=== PATIENT | male | born 1960 | race Caucasian/White ===

== ENCOUNTER 2022-10-26 08:54 | Emergency (ER) | payer OTHER ==
--- OUTSIDE RECORDS SUMMARY | 2022-10-26 08:58 | XMS REPORT | Continuity of Care Document ---
:1960 Author Organization [facility] t Address [address] [facility] [address] [place] [address] Care Team Providers Name Role Phone Asked, No Pcp Primary Care Physician Unavailable ART WATTERS Attending Clinician Unavailable Percy CARVALHO, Kermit Pacheco Attending Clinician [phone] Joanna Dyer DO Attending Clinician Ronald Vaughan DO Attending Clinician Steven Sosa MD Attending Clinician Missy Min MD Attending Clinician JOANNA DYER Admitting Clinician Unavailable Payers Payer Name Policy Type Policy Number Effective Date Expiration Date [facility] [id number] ALLIANCE - PC3 Problems Condition Condition Condition Status Onset Resolution Last Treating Co mments Source Name Details Category Date Date Treatment Clinician Date Iron Iron Disease Active Overview: Method i deficiency deficiency 02-[address] anemia due anemia due 00:00: g of this [facility]osp[facility] to chronic to chronic 00 note l blood loss blood loss might be different from the original. Added automatic ally from request for surgery [id number] Rectal Rectal Disease Active Overview: Method i bleeding bleeding 02-[address] 00:00: g of this Hospita 00 note l might be different from the original. Added automatic ally from request for surgery [id number] Allergies, Adverse Reactions, Alerts Allergy Allergy Status Severity Reaction(s) Onset Inactive Treating Comm ents Source Name Type Date Date Clinician Iron Propensi Active Other (See Does not Me thodi ty to Comments) 03-[address] adverse 00:00: but Hospita reaction 00 cannot l s to even drug tough it Iodine Propensi Active GI Pt Methodi ty to Intolerance 02-[address] adverse 00:00: to Hospita reaction 00 seafood l s to makes it drug nauseous and sick. Never been received Iodine Family History Family Member Diagnosis Comments Start Date Stop Date Source Natural father [facility] Natural mother [facility] Social History Social Habit Start Date Stop Date Quantity Comments Source History of tobacco Cigarette Smoker [facility] Alcohol intake 2022-03-03 2022-03-03 Ex-drinker [facility] 00:00:00 00:00:00 (finding) [facility] Cigarettes smoked 2022-02-28 2022-02-28 [facility] current (pack per 00:00:00 00:00:00 Hospita l day) - Reported Cigarette 2022-02-28 2022-02-28 [facility] pack-[facility] 00:[facility] 00:00:00 Hospital Tobacco use and 2022-02-28 2022-02-28 Smokeless tobacco Me [facility] exposure 00:00:00 00:00:00 non-user Hospital Sex Assigned At [birth year] [facility] 00:00:00 00:00:00 Hospital Smoking Status Start Date Stop Date Source Smokes tobacco daily 2022-02-28 00:00:00 [facility] Medications Ordered Filled Start Stop Current Ordering Indication Dosage Frequency Signature Comments Components Source Medication Medication Date Date Medication? Clinician (SIG) Name Name aspirin 81 No 81mg QD Chew 1 Meth reece mg chewable 03-03 tablet (81 s t tablet 00:00: 04:59 mg total) Hospi ta 00 :00 daily for l 60 days. diltiazem No 30mg Q.5D Take 1 Metho di (CardIZEM) 03-03 tablet (30 st 30 MG 00:00: 04:59 mg total) Hospit a tablet 00 :00 by mouth 2 l (two) times a day for 30 days. pantoprazol No 40mg QD Take 1 Met hodi e 03-03 tablet (40 st (Protonix) 00:00: 04:59 mg total) H ospita 40 MG EC 00 :00 by mouth l tablet daily for 30 days. polyethylen No 17g Q.5D Take 17 g Methodi e glycol 03-[address] (MIRALAX) 00:00: 04:59 (two) Hospit a 17 gram 00 :00 times a l packet day for 30 days. ferrous No 324mg QD Take 1 Method i gluconate 03-[address] (FERGON) 00:00: 04:59 (324 mg Hospi ta 324 MG 00 :00 total) by l tablet mouth daily with breakfast for 30 days. Vital Signs Vital Name Observation Time Observation Value Comments Source Systolic blood 2022-03-03 16:16:41 119 mm[Hg] Method ist Hospital pressure Diastolic blood 2022-03-03 16:16:41 68 mm[Hg] Metho [facility] pressure Heart rate 2022-03-03 16:16:41 71 /min [facility] Body temperature 2022-03-03 16:16:41 36.61 Yolanda [facility] Respiratory rate 2022-03-03 16:16:41 18 /min [facility] Oxygen saturation in 2022-03-03 16:16:41 98 /min [facility] Arterial blood by Pulse oximetry Body weight 2022-03-02 12:30:00 78.9 kg [facility] BMI 2022-03-02 12:30:00 24.26 kg/m2 [facility] Body height 2022-02-28 23:29:00 180.3 cm [facility] Procedures Procedure Date / Time Performing Source Performed Clinician CBC WITH PLATELET AND DIFFERENTIAL 2022-03-03 Missy Min 11:16:00 [facility] BASIC METABOLIC PANEL 2022-03-03 Ronald Vaughan 11:16:00 [facility] MAGNESIUM LEVEL 2022-03-03 Ronald Vaughan 11:16:00 [facility] ESTIMATED GFR 2022-03-03 Ronald Vaughan 11:16:00 [facility] TRANSFUSE RED BLOOD CELLS 2022-03-02 Dom Meyer Meth odist 18:45:00 Hospital SURGICAL PATHOLOGY REQUEST 2022-03-02 Ronald Vaughan dist 18:10:00 Hospital ESOPHAGOGASTRODUODENOSCOPY (EGD) 2022-03-02 Missy Minist 16:45:00 Hospital COLONOSCOPY 2022-03-02 Missy Minist 16:45:00 [facility] ZZCOVID-19 ANTI-SPIKE IGG ANTIBODY 2022-03-02 Kwaku Hadley libertad [facility] TITER 08:30:00 [facility] CBC WITH PLATELET AND DIFFERENTIAL 2022-03-02 Missy Min 08:30:00 Hospital BASIC METABOLIC PANEL 2022-03-02 Go, Giezle Degamo Methodis t 08:30:00 Hospital PHOSPHORUS LEVEL 2022-03-02 Go, Giezle Degamo [facility] 08:30:00 Hospital MAGNESIUM LEVEL 2022-03-02 Go, Giezle Degamo [facility] 08:30:00 [facility] ZZCOVID-19 SEROLOGY PATIENT 2022-03-02 Bryan Hadley odist SURVEILLANCE 08:30:00 [facility] ESTIMATED GFR 2022-03-02 Go, Giezle Degamo [facility] 08:30:00 Hospital ECG 12-LEAD 2022-03-01 Khris Hunterist 20:42:17 Hospital HEMOGLOBIN & HEMATOCRIT 2022-03-01 Go, Giezle Degamo Method ist 19:48:00 Hospital TTE COMPLETE, WO CONTRAST, W 2022-03-01 Go, Giezle Degamo M ethodist DOPPLER ([id number]) 14:54:00 Hospital ECG 12-LEAD 2022-03-01 Khris Hunter 13:17:24 Hospital TRANSFUSE RED BLOOD CELLS 2022-03-01 Joanna Dyer dist 13:14:00 Hospital CBC WITH PLATELET AND DIFFERENTIAL 2022-03-01 Missy Min 11:41:00 Hospital SMEAR REVIEW 2022-03-01 Stefany Barton 11:41:00 Hospital TROPONIN T 2022-03-01 Kermit Greer 01:51:00 [facility] CBC WITH PLATELET AND DIFFERENTIAL 2022-03-01 José Barton 01:51:00 Hospital SMEAR REVIEW 2022-03-01 Stefany Barton 01:51:00 Hospital URINE CULTURE 2022-03-01 Kermit Greer 00:55:00 [facility] URINALYSIS SCREEN AND MICROSCOPY, 2022-03-01 Alka Greer WITH REFLEX TO CULTURE 00:55:00 [facility] URINE DRUGS OF ABUSE SCREEN 2022-03-01 Stefany Barton 00:55:00 Hospital TRANSFUSE RED BLOOD CELLS 2022-02-28 Kermit Greer ist 22:22:[address] [facility] [address] ABDOMEN PELVIS WO CONTRAST 2022-02-28 Stefany Barton 22:03:50 Hospital CBC WITH PLATELET AND DIFFERENTIAL 2022-02-28 José Barton 21:34:00 Hospital SMEAR REVIEW 2022-02-28 Stefany Barton 21:34:00 Hospital THYROID STIMULATING HORMONE 2022-02-28 Stefany Barton 21:33:00 Hospital FERRITIN LEVEL 2022-02-28 Stefany Barton 21:31:00 Hospital TOTAL IRON BINDING CAPACITY 2022-02-28 Stefany Barton 21:31:00 Hospital LDH 2022-02-28 Stefany Barton 21:31:00 Hospital VITAMIN B12 LEVEL 2022-02-28 Stefany Barton 21:31:00 Hospital FOLATE, RBC 2022-02-28 Stefany Barton 21:31:00 Hospital COVID-19 QUALITATIVE RT-PCR 2022-02-28 Kermit Greer 20:43:00 [facility] OCCULT BLOOD, STOOL 2022-02-28 Kermit Greer 20:13:00 [facility] TROPONIN T 2022-02-28 Kermit Greer 20:06:00 [facility] ABO AND RH CONFIRMATION BY 2022-02-28 Kermit Greero dist PROTOCOL 20:06:00 [facility] XR CHEST 1 VW PORTABLE 2022-02-28 Kermit Greer 18:37:43 [facility] ECG 12-LEAD 2022-02-28 Kermit Greer 18:03:43 [facility] PROTHROMBIN TIME WITH INR 2022-02-28 Kermit Greer ist 18:03:00 [facility] PARTIAL THROMBOPLASTIN TIME (PTT) 2022-02-28 Alka Greer 18:03:00 [facility] TYPE AND SCREEN 2022-02-28 Kermit Greer 18:03:00 [facility] PREPARE RBC 2022-02-28 Dom Meyer [facility] 18:03:00 Hospital ESTIMATED GFR 2022-02-28 Kermit Greer 18:02:00 [facility] [place] CRITICAL CARE ILL/INJURED 2022-02-28 Kermit Greer PATIENT INIT 30-74 MIN 17:59:51 [facility] ECG ED PRELIMINARY INTERPRETATION 2022-02-28 Alka Greer 17:59:51 [facility] ECG 12-LEAD 2022-02-28 Kermit Greer 17:39:55 [facility] CBC WITH PLATELET AND DIFFERENTIAL 2022-02-28 Yara Greer 17:38:00 [facility] COMPREHENSIVE METABOLIC PANEL 2022-02-28 [facility] LIPASE LEVEL 2022-02-28 Kermit Greer 17:38:00 [facility] ESTIMATED GFR 2022-02-28 Kermit Greer 17:38:00 [facility] TROPONIN T 2022-02-28 Kermit Greer 17:38:00 [facility] MAGNESIUM LEVEL 2022-02-28 Kermit Greer 17:38:00 [facility] SMEAR REVIEW 2022-02-28 Kermit Greer 17:38:00 [facility] Plan of Care Planned Activity Planned Date Details Comments Source Future Scheduled 2022-08-09 COVID-19 VACCINE (#1) [facility] Test 10:24:30 [code = COVID-19 VACCINE (#1)] Future Scheduled 2022-08-09 Pneumococcal Vaccine: [facility] Test 10:24:30 Pediatrics (0 to 5 Years) and At-Risk Patients (6 to 64 Years) (1 - PCV) [code = Pneumococcal Vaccine: Pediatrics (0 to 5 Years) and At-Risk Patients (6 to 64 Years) (1 - PCV)] Future Scheduled 2022-08-09 Hepatitis C screening [facility] Test 10:24:30 (procedure) [code = 853435511] Future Scheduled 2022-08-09 COLONOSCOPY SCREENING [facility] Test 10:24:30 [code = COLONOSCOPY SCREENING] Future Scheduled 2022-08-09 Screening for [facility] Test 10:24:30 malignant neoplasm of lung (procedure) [code = 391416669] Future Scheduled 2022-08-09 SHINGLES VACCINES (1 Met [facility] Test 10:24:30 of 2) [code = SHINGLES VACCINES (1 of 2)] Future Scheduled 2022-08-09 INFL[address]ZA VACC[address] Method [facility] Test 10:24:30 [code = INFLUENZA VACCINE] Encounters Start End Encounter Admission Attending Care Care Encounter Source Date/Time Date/Time Type Type Clinicians Facility Department ID 2022-12-07 2022-12-07 Outpatient ART [facility] [id number] [facility] 00:00:00 00:00:00 Mahendra 2022-02-28 2022-03-03 [facility] Percy Kermit Junior 1.2.840. 1 [id number] Methodi 12:37:00 11:50:00 Encounter NereidaolgaJoanna mendoza [id number] Ronald Vaughan 3.430.2.7 Hospita .3.132978 l .8 2022-03-02 2022-03-02 Anesthesia Steven Sosa 1.2.840.1 [id number] Methodi 11:44:00 12:27:00 [place] [address].1.[address] 3.430.2.7 Hospit a .3.357237 l .8 2022-03-02 2022-03-02 Surgery Missy Min 1.2.840.1 [id number] Methodi 11:40:00 12:20:[address] 3.430.2.7 Hospit a .3.938142 l .8 2022-02-28 2022-02-28 Travel 1.2.840.1 1.2.390.981 [id number] Methodi 00:00:00 00:00:[address] 3.430.2.7 0.2.7.3.698 Ho spita .3.609467 084.8 l .8 Results Test Description Test Time Test Comments Results Result Comments Source ECG 12 lead 2022-04-16 16:16:00 Test Item Value Reference Range Interpretation Comme nts Ventricular rate (test code = 253) 63 Atrial rate (test code = 255) 63 WV interval (test code = 266) 154 QRSD interval (test code = 260) 92 QT interval (test code = 264) 380 QTC interval (test code = 265) 388 P axis 1 (test code = 267) 75 QRS axis 1 (test code = 268) 82 T wave axis (test code = 270) 60 EKG impression (test code = 273) Normal sinus rhythm with sinus arrhythmia-Normal ECG-In automated comparison with ECG of 01-MAR-2022 08:17,-Sinus rhythm has replaced Atrial fibrillation-Vent. rate has decreased BY 65 B[facility] [id number] 22:07:12 Test Item Value Reference Range Interpretation Comments Case number (test code = [id number]) Surgical pathology See link below for report (test code = PDF Lab Report [id number]) Result status (test code This is Final Report = [id number]) for [id number] [facility], (w Contrast, Strain and 3D if needed)2022-03-02 13:38:33 Test Item Value Reference Interpretation Comments Range Ao Root Diameter 3.24 cm (test code = 5154666846) AoV Area, Vmax (test 2.49 cm2 >=1.5 code = 9754513481) AoV Area, VTI (test 2.48 cm2 code = 9773321652) AoV Mean PG (test 4.74 mmHg code = 0712308690) AoV Peak PG (test 6.52 mmHg code = 5716246505) AoV Vmax (test code 1.32 m/s = 7442348876) AoV VTI (test code = 0.26 m 3323703388) BSA Rogers (test code 2.04 m2 = 7365831142) BSA (test code = 2.02 m2 1318294372) IVS,d (test code = 1.50 cm 0.6-1 A 5255611991) IVS/LVPW,2D (test 0.99 code = 6698652641) Left Atrium 4.02 cm Dimension Anterior (test code = 8975629666) LV,d (test code = 4.10 cm 1264920205) LV EF,2D (test code 66.03 % = 5424255859) LV,s (test code = 2.86 cm 6265373377) LVOT area (test code 3.90 cm2 = 6037575093) LVOT Diam,S (test 2.23 cm code = 1577827082) LVOT Vmax (test code 0.81 m/s = 1550163846) LVOT VTI (test code 0.15 m = 7924316720) LVPWD,d (test code = 1.51 cm 0.60-1.19 A 2034303629) PV Pk Grad (test 2.05 mmHg code = 1000933065) PV VMAX (test code = 0.72 m/s 2897082166) TR Vpeak (test code 2.23 m/s = 1300279479) TR pk grad (test 15.71 mmHg code = 3325223401) AoV area i VTI BSA 1.23 cm2/m2 >=0.85 [place] (test code = 1303461695) BMI (test code = 25.24 kg/m2 1176425731) E wave decelartion 122.41 See_Comment A [Automat ed time (test code = message] T he 6281304577) system which generated this result transmitted reference range : 200 msec. The reference range was not used to interpret this result as normal/abnormal . MV valve area p 1/2 6.20 cm2 method (test code = 7399962761) MV Peak E [place] (test 0.78 m/s code = 9524680274) MV stenosis pressure 35.50 ms 1/2 time (test code = 5609291357) LVOT stroke volume 0.59 ml (test code = 3961308088) AV LVOT peak 2.63 mmHg gradient (test code = 3016302040) Ascending aorta 3.51 cm (test code = 2644722233) Ao Root Diameter 3.24 cm (test code = 9312613763) LV SYS VOL (test 31.21 ml 21-61 code = 7165658859) LV CASTANEDA VOL (test 74.35 ml 62-150 code = 7255108533) LA area s A4C (test 22.67 cm2 code = 1905053665) LV SI Teich 2D (test 21.34 ml/m2 code = 6881480827) LV SV Teich 2D (test 43.14 ml code = 6877254847) LV Vol s Teich PSAX 31.21 ml (test code = 5533173926) LVOT CI (test code = 3.27 l/min/m2 0191045729) LVOT CO (test code = 6.62 l/min 8983972526) LVOT HR for LVOT CO 110.63 bpm (test code = 0811675842) LVOT SI (test code = 29.59 ml/m2 6905456467) BSA [place] (test 2.04 m2 code = 5209477162) AoV Vmn (test code = 1.04 m/s 7492178848) IVS s 2D (test code 1.93 cm = 2332682704) LV FS Teich 2D (test 30.22 code = 1693476396) LV FS Cube 2D (test 30.22 code = 6833649235) LVOT Vmn (test code 0.63 = 0789863834) Pt Size (test code = 180.34 9392328336) Pt Wt (test code = 82.10 9129728878) Aov area Vmn (test 2.45 cm2 code = 1453364397) LVOT mean grad (test 1.68 mmHg code = 3189608270) MAX Pred HR (test 159.17 code = 0351480989) 85 of MPHR (test 135.29 code = 2742435587) AoV area I VMN bsa 1.21 cm2/m2 (test code = 2942412680) Calc MPHR (test code 159.17 bpm = 0704968437) IVS pct thck PLAX 29.05 % (test code = 0645559744) LV SI Cube 2D (test 22.56 ml/m2 code = 1608000534) LV SV Cube 2D (test 45.61 ml code = 7802766061) LV vol d cube 2D 69.07 ml (test code = 1266761854) LV vol s cube 2D 23.47 ml (test code = 3912258933) LVPW pct thck PLAX 42.11 % (test code = 8530417145) LVPW s PLAX (test 2.15 cm code = 6611897939) MV Decel slope (test 6.38 m/s2 code = 0099875867) Pred Exer Dur R1 8.58 (test code = 0441823396) Pred METS R1 (test 8.88 code = 7891395951) LA Vol MOD A4C (test 71.69 ml code = 0520349223) Velocity Ratio 0.61 m/s (V1/V2) (test code = 4689) EF (test code = 58 % 6892639077) LVOT VTI (CM) (test 15.00 cm code = 2432980992) SOTO (test code = SOTO) Left Ventricle: Left ventricle size is normal. Mildly increased wall thickness. Findings consistent with mild concentric hypertrophy. Normal wall motion. Normal systolic function with a visually estimated EF of 60 - 65%. Left Atrium: Left atrium is mildly dilated. Tricuspid Valve: Mild valvular regurgitation. Left VentricleLeft ventricle size is normal. Mildly increased wall thickness. Findings consistent with mild concentric hypertrophy. Normal wall motion. Normal systolic function with a visually estimated EF of 60 - 65%. Unable to assess diastolic function.Right VentricleRight ventricle size is normal. Normal wall thickness. Normal systolic function.Left AtriumLeft atrium is mildly dilated.Right AtriumRight atrium size is normal.Mitral ValveValve structure is normal. No significant valvular regurgitation. No stenosis.Tricuspid ValveValve structure is normal. Mild valvular regurgitation. No stenosis.Aortic ValveValve structure appears tricuspid. Mildly sclerotic cusps. No significant valvular regurgitation. No stenosis.Pulmonic ValveNot well visualized.Pericardi umThere is no pericardial effusion present.AortaNot well visualized.Study DetailsStudy quality was adequate. A complete 2D, color flow Doppler and spectral Doppler echocardiogram was performed. Lab Interpretation Abnormal (test code = 05848-2) [facility] [id number] 02:34:00 Test Item Value Reference Range Interpretation Comments Urine culture (test SEE COMMENT Bacteriu leah screen code = 2381214) negative. [facility] RNA [Presence] in Respiratory specimen by LISETTE with probe [id number] 01:56:11 Test Item Value Reference Range Interpretation Comments SARS-CoV-2 (COVID-19) RNA Not detected [Presence] in Respiratory specimen by LISETTE with probe detection (test code = 29284-5) Whether patient is employed in a Unknown healthcare setting (test code = 91302-9) Whether the patient has symptoms Unknown related to condition of interest (test code = 68357-2) Whether the patient was Unknown hospitalized for condition of interest (test code = 42742-4) Whether the patient was admitted Unknown to intensive care unit (ICU) for condition of interest (test code = 67548-0) Whether patient resides in a Unknown congregate care setting (test code = 64456-8) status (test code = Unknown 58131-5) Date and time of symptom onset Unknown (test code = 34838-9) [facility]
[2022-10-26 09:34] LABS: Hematocrit 19.8 % (39.6-49.0); MCV 65.1 fL (80-100); MPV 8.7 fL (7.6-11.3); RBC Red Blood Cell Count 3.05 M/uL (4.33-5.43)
[2022-10-26 09:50] LABS: Potassium 4.1 mEq/L (3.5-5.1)
[2022-10-26] MEDS ORDERED: NA CHLORIDE 0.9% 250 ML ONE (11:09)
[2022-10-26 11:36] LABS: Anisocytosis 3+; Blood Morphology Comment NOTED (NOT SEEN); Hypochromasia 1+; Platelet Estimate ADEQ; Platelets, Giant PRESENT; Polychromasia 1+
--- NOTE | 2022-10-26 14:36 | EDPHYS ---
Physician Documentation [facility] Name: Amanuel Page Age: 62 yrs Sex: Male : 1960 Arrival Date: 10/26/2022 Time: 08:54 Bed 20 Private MD: ED Physician Chris Diego HPI: 10/26 11:11 This 62 yrs old Male presents to ER via Ambulatory with complaints of Abnormal Lab ms3 Results. 11:11 62-year-old male with past medical history of bladder mass, anemia presents from the [facility] ms3 for low hemoglobin. Patient states his hemoglobin was 5.8 at the [facility]. Patient denies pain, shortness of breath, nausea, vomiting. Historical: - Allergies: 09:00 Iodine; aa5 - PMHx: 09:00 Bladder Mass; Anemia; aa5 - Immunization history:: Adult Immunizations up to date. - Social history:: Smoking status: Patient denies any tobacco usage or history of. ROS: 11:11 Constitutional: Negative for fever, and chills. Neck: Negative for injury, pain, and ms3 swelling, Cardiovascular: Negative for chest pain, and palpitations. Respiratory: Negative for shortness of breath, cough, wheezing, and pleuritic chest pain, Abdomen/GI: Negative for abdominal pain, nausea, vomiting, diarrhea, and constipation, MS/Extremity: Negative for injury and deformity. 11:11 All other systems are negative. Exam: 11:11 Constitutional: This is a well developed, well nourished patient who is awake, alert, ms3 and in no acute distress. Head/Face: Normocephalic, atraumatic. Neck: Trachea midline, no cervical lymphadenopathy. Supple, full range of motion without nuchal rigidity, or vertebral point tenderness. No Meningismus. Chest/axilla: Normal chest wall appearance and motion. Nontender with no deformity. Cardiovascular: Regular rate and rhythm with a normal S1 and S2. No gallops, murmurs, or rubs. Normal PMI, no JVD. No pulse deficits. Respiratory: Lungs have equal breath sounds bilaterally, clear to auscultation and percussion. No rales, rhonchi or wheezes noted. No increased work of breathing, no retractions or nasal flaring. Abdomen/GI: Soft, non-tender, with normal bowel sounds. No distension or tympany. No guarding or rebound. No evidence of tenderness throughout. Skin: Warm, dry with normal turgor. Normal color with no rashes, no lesions, and no evidence of cellulitis. MS/ Extremity: Pulses equal, no cyanosis. Neurovascular intact. Full, normal range of motion. Vital Signs: 09:00 BP 126 / 71; Pulse 72; Resp 16 S; Temp 98.5(O); Pulse Ox 95% on R/A; aa5 09:00 BP 126 / 71; Pulse 70; Resp 18; Pulse Ox 98% ; ko1 10:00 BP 108 / 66; Pulse 74; Resp 16; Pulse Ox 100% ; ko1 11:00 BP 128 / 81; Pulse 70; Resp 18; Pulse Ox 100% ; ko1 12:00 BP 123 / 72; Pulse 66; Resp 18; Pulse Ox 100% ; ko1 13:00 BP 117 / 76; Pulse 72; Resp 16; Pulse Ox 100% ; ko1 MDM: 09:24 Patient medically screened. ms3 11:11 Differential Diagnosis Anemia versus lab error. ms3 15:00 Data reviewed: vital signs, nurses notes, lab test result(s), and as a result, I will ms3 discharge patient. I considered the following discharge prescriptions or medication management in the emergency department Patient given blood. Counseling: I had a detailed discussion with the patient and/or guardian regarding: the historical points, exam findings, and any diagnostic results supporting the discharge/admit diagnosis, lab results, the need for outpatient follow up, to return to the emergency department if symptoms worsen or persist or if there are any questions or concerns that arise at home. ED course: Discussed hemoglobin and necessity for blood transfusion with patient. Patient completed blood transfusion without complications. Patient to follow-up with his primary care physician in 1 to 2 days. Patient understands and agrees with plan. All questions were answered. Return precautions discussed include worsening symptoms, or any other concerns. 10/26 09:09 Order name: CBC with Diff; Complete Time: 15:01 ms3 10/26 09:09 Order name: BMP; Complete Time: 15: ms3 10/26 09:09 Order name: Type And Screen ms3 10/26 09:48 Order name: Manual Differential; Complete Time: 15: EDMS 10/26 10:14 Order name: Packed RBC Leukored EDMS Administered Medications: No medications were administered Disposition Summary: 10/26/22 14:35 Discharge Ordered Location: Home ms3 Condition: Stable ms3 Diagnosis - Anemia, unspecified ms3 Followup: ms3 - With: Private Physician - When: 2 - 3 days - Reason: Recheck today's complaints Discharge Instructions: - Discharge Summary Sheet ms3 - Anemia ms3 - Blood Transfusion, Adult ms3 Forms: - Medication Reconciliation Form ms3 - Thank You Letter ms3 - Antibiotic Education ms3 - Prescription Opioid Use ms3 Signatures: Dispatcher [employer] EDMS Daxa Bush, RN RN aa5 Liberty Logan RN RN Chris Diego, DO ms3
--- NOTE | 2022-10-26 14:36 | ER ---
Nurse's Notes [facility] Name: Amanuel Page Age: 62 yrs Sex: Male : 1960 Arrival Date: 10/26/2022 Time: 08:54 Bed 20 Private MD: Diagnosis: Anemia, unspecified Presentation: 10/26 09:00 Chief complaint: Chief complaint: Patient states: "my doctor sent me a message this aa5 morning saying that I need a blood transfusion", reports Hemoglobin of 5.8. Pt states "I have a biopsy scheduled on Tuesday to check me for cancer". 09:00 Coronavirus screen: At this time, the client does not indicate any symptoms associated aa5 with coronavirus-19. Ebola Screen: Patient denies travel to an Ebola-affected area in the 21 days before illness onset. Initial Sepsis Screen: Does the patient meet any 2 criteria? No. Patient's initial sepsis screen is negative. Does the patient have a suspected source of infection? No. Patient's initial sepsis screen is negative. Risk Assessment: Do you want to hurt yourself or someone else? Patient reports no desire to harm self or others. Onset of symptoms was October 26, 2022. 09:00 Acuity: ANA 3 aa5 09:00 Method Of Arrival: Ambulatory aa5 Historical: - Allergies: 09:00 Iodine; aa5 - PMHx: 09:00 Bladder Mass; Anemia; aa5 - Immunization history:: Adult Immunizations up to date. - Social history:: Smoking status: Patient denies any tobacco usage or history of. Screenin:08 [facility] ED Fall Risk Assessment (Adult) Score/Fall Risk Level 0 - 2 = Low Risk hb Oriented to surroundings, Maintained a safe environment, Educated pt \\T\\ family on fall prevention, incl call for assistance when getting out of bed. Abuse screen: Denies threats or abuse. Denies injuries from another. Nutritional screening: No deficits noted. Tuberculosis screening: No symptoms or risk factors identified. Assessment: 09:47 General: Appears in no apparent distress. Behavior is calm, cooperative. Pain: Denies hb pain. Neuro: Level of Consciousness is awake, alert, obeys commands, Oriented to person, place, time, situation. Cardiovascular: Patient's skin is warm and dry. Respiratory: Respiratory effort is even, unlabored, Respiratory pattern is regular, symmetrical. GI: No signs and/or symptoms were reported involving the gastrointestinal system. : No signs and/or symptoms were reported regarding the genitourinary system. EENT: No signs and/or symptoms were reported regarding the EENT system. Derm: Skin is pink, warm \\T\\ dry. Musculoskeletal: No signs and/or symptoms reported regarding the musculoskeletal system. Vital Signs: 09:00 BP 126 / 71; Pulse 72; Resp 16 S; Temp 98.5(O); Pulse Ox 95% on R/A; aa5 09:00 BP 126 / 71; Pulse 70; Resp 18; Pulse Ox 98% ; ko1 10:00 BP 108 / 66; Pulse 74; Resp 16; Pulse Ox 100% ; ko1 11:00 BP 128 / 81; Pulse 70; Resp 18; Pulse Ox 100% ; ko1 12:00 BP 123 / 72; Pulse 66; Resp 18; Pulse Ox 100% ; ko1 13:00 BP 117 / 76; Pulse 72; Resp 16; Pulse Ox 100% ; ko1 ED Course: 08:56 Patient arrived in ED. rg4 08:58 Chris Diego DO is Attending Physician. ms3 09:07 Arm band placed on Patient placed in an exam room, on a stretcher. aa5 09:11 Triage completed. aa5 09:18 Liberty Logan, RN is Primary Nurse. hb 09:30 Inserted saline lock: 20 gauge in right antecubital area, using aseptic technique. hb 09:47 Patient has correct armband on for positive identification. hb 10:45 Consent for blood and/or blood product transfusion explained by staff, explained by ko1 physician, signed by patient. 11:30 Warm blanket given. Pillow given. ko1 11:30 No provider procedures requiring assistance completed. ko1 11:45 Pulse ox on. NIBP on. ko1 Administered Medications: No medications were administered Medication: 09:47 VIS not applicable for this client. hb Outcome: 14:35 Discharge ordered by . ms3 14:50 Patient left the ED. ko1 Signatures: Daxa Bush RN RN aa5 Liberty Logan RN RN hb Garcia, Rubi rg4 Chris Diego DO DO ms3 Veena Lopez RN RN ko1 Corrections: (The following items were deleted from the chart) 09:11 09:00 Chief complaint: aa5 aa5
[2022-10-26 14:55] VITALS: TEMP 98.5
[2022-10-26 14:56] VITALS: O2SAT 100
[2022-10-26 15:00] VITALS: BP 117/76
== END 2022-10-26 14:50 | disposition home or self-care (01) ==
LOC: ER 08:54
PROC: 30233N1 Transfusion of Nonautologous Red Blood Cells into Peripheral Vein, Percutaneous Approach (ICD-10-PCS; principal; 2022-10-26)
DX: D64.9 Anemia, unspecified (principal)
CPT/HCPCS: 85025; 80048; 36415; 86900; 86850; 86901; 86920; 99283; 36430; P9016; J7050

== ENCOUNTER 2022-12-07 13:03 | Emergency (ER) | payer OTHER, SELFPAY ==
--- OUTSIDE RECORDS SUMMARY | 2022-12-07 13:41 | XMS REPORT | Continuity of Care Document ---
:1960 Author Organization [facility] t Address [address] [facility] [facility] [place] [address] Care Team Providers Name Role Phone Asked, No Pcp Primary Care Physician Unavailable ART WATTERS Attending Clinician Unavailable ART WATTERS Attending Clinician Unavailable Art Watters MD Attending Clinician Kermit Greer MD Attending Clinician [phone] Joanna Dyer DO Attending Clinician Ronald Vaughan DO Attending Clinician Sheila CARVALHO, Steven Liu Attending Clinician Missy Min MD Attending Clinician JOANNA DYER Admitting Clinician Unavailable Payers Payer Name Policy Type Policy Number Effective Date Expiration Date S vinod [facility] CHOICE [id number] 2022 CARD AND PC3 00:00:00 [facility] [id number] ALLIANCE - PC3 Problems Condition Condition Condition [...] Added automatic ally from request for surgery [id number] Rectal Rectal Disease Active Overview: Method i bleeding bleeding [address] 00:00: g of this Hospita 00 note l might be different from the original. Added automatic ally from request for surgery [id number] Allergies, Adverse Reactions, Alerts Allergy Allergy Status [...] Start Date Stop Date Source Natural father [facility] Natural mother [facility] Social History Social Habit Start Date Stop Date Quantity Comments Source History of tobacco Cigarette Smoker [facility] Gender identity [facility] Sexual orientation [facility] Alcohol intake 2022-03-03 2022-03-03 Ex-drinker [facility] 00:00:00 00:00:00 (finding) Hospital History of Social 2022-03-03 2022-03-[address] function 00:00:00 00:00:00 Hospital Tobacco use and 2022-02-28 2022-02-28 Smokeless [facility] exposure 00:00:00 00:00:00 tobacco non-user Hospital Cigarettes smoked 2022-02-28 2022-02-28 [facility] current (pack per 00:00:00 00:00:00 Hospita l day) - Reported Cigarette 2022-02-28 2022-02-28 [facility] pack-years 00:00:00 00:00:00 Hospital Sex Assigned At [birth year] [facility] 00:00:00 00:00:00 Hospital Smoking Status Start Date Stop Date Source Smokes tobacco daily 2022-02-28 00:00:00 [facility] Medications Ordered Filled Start Stop Current Ordering Indication Dosage Frequency Signature Comments Components Source Medication Medication Date Date Medication? Clinician (SIG) Name Name aspirin 81 2021- No 81mg QD Chew 1 Meth reece mg chewable 8-31 10-31 tablet (81 s t tablet 00:00: 04:59 mg total) Hospi ta 00 :00 daily for l 60 days. aspirin 81 2021- No 81mg QD Chew 1 Meth reece mg chewable 8-31 10-31 tablet (81 s t tablet 00:00: 04:59 mg total) Hospi ta 00 :00 daily for l 60 days. diltiazem 2021- No 30mg Q.5D Take 1 Metho di (CardIZEM) 03-03 tablet (30 st 30 MG 00:00: 04:59 mg total) Hospit a tablet 00 :00 by mouth 2 l (two) times a day for 30 days. pantoprazol 2021- No 40mg QD Take 1 Met hodi e 03-03 tablet (40 st (Protonix) 00:00: 04:59 mg total) H ospita 40 MG EC 00 :00 by mouth l tablet daily for 30 days. polyethylen 2021- No 17g Q.5D Take 17 g Methodi e glycol 03-[address] (MIRALAX) 00:00: 04:59 (two) Hospit a 17 gram 00 :00 times a l packet day for 30 days. ferrous 2021-2021- No 324mg QD Take 1 Method i gluconate 03-[address] (FERGON) 00:00: 04:59 (324 mg Hospi ta 324 MG 00 :00 total) by l tablet mouth daily with breakfast for 30 days. diltiazem 2021- No 30mg Q.5D Take 1 Metho di (CardIZEM) 03-03 tablet (30 st 30 MG 00:00: 04:59 mg total) Hospit a tablet 00 :00 by mouth 2 l (two) times a day for 30 days. pantoprazol 2021- No 40mg QD Take 1 Met hodi e 03-03 tablet (40 st (Protonix) 00:00: 04:59 mg total) H ospita 40 MG EC 00 :00 by mouth l tablet daily for 30 days. polyethylen 2021-2021- No 17g Q.5D Take 17 g Methodi e glycol 03-[address] (MIRALAX) 00:00: 04:59 (two) Hospit a 17 gram 00 :00 times a l packet day for 30 days. ferrous 2021-0 2021- No 324mg QD Take 1 Method i gluconate 03-[address] (FERGON) 00:00: 04:59 (324 mg Hospi ta 324 MG 00 :00 total) by l tablet mouth daily with breakfast for 30 days. Vital Signs Vital Name Observation Time Observation Value Comments Source Systolic blood 2022-03-03 16:16:41 119 mm[Hg] [facility] pressure Diastolic blood 2022-03-03 16:16:41 68 mm[facility]Hg[facility] pressure Heart rate 2022-03-03 16:16:41 71 /min [facility] Body temperature 2022-03-03 16:16:41 36.61 Yolanda [facility] Respiratory rate 2022-03-03 16:16:41 18 /min [facility] Oxygen saturation in 2022-03-03 16:16:41 98 /min [facility] Arterial blood by Pulse oximetry Body weight 2022-03-02 12:30:00 78.9 kg [facility] BMI 2022-03-02 12:30:00 24.26 kg/m2 [facility] Body height 2022-02-28 23:29:00 180.3 cm [facility] Procedures Procedure Date / Time Performing Source Performed Clinician CBC WITH PLATELET AND DIFFERENTIAL 2022-03-03 Missy Min 11:16:00 [facility] BASIC METABOLIC PANEL 2022-03-03 Ronald Vaughan 11:16:00 [facility] MAGNESIUM LEVEL 2022-03-03 Ronald Vaughan 11:16:00 [facility] ESTIMATED GFR 2022-03-03 Ronald Vaughan 11:16:00 Hospital TRANSFUSE RED BLOOD CELLS 2022-03-02 Dom Meyer odist 18:45:00 [facility] SURGICAL PATHOLOGY REQUEST 2022-03-02 Ronald Vaughan 18:10:00 [facility] ESOPHAGOGASTRODUODENOSCOPY (EGD) 2022-03-02 Missy Min 16:45:00 [facility] COLONOSCOPY 2022-03-02 Missy Min 16:45:00 [facility] ZZCOVID-19 ANTI-SPIKE IGG ANTIBODY 2022-03-02 Kwaku Hadley TITER 08:30:00 [facility] CBC WITH PLATELET AND DIFFERENTIAL 2022-03-02 Missy Min 08:30:00 Hospital BASIC METABOLIC PANEL 2022-03-02 Go, Ednale Degamo [facility] t 08:30:00 Hospital PHOSPHORUS LEVEL 2022-03-02 Go, Giezle Degamo [facility] 08:30:00 Hospital MAGNESIUM LEVEL 2022-03-02 Go, Giezle Degamo [facility] 08:30:00 [facility] ZZCOVID-19 SEROLOGY PATIENT 2022-03-02 Bryan Hadley odist SURVEILLANCE 08:30:00 [facility] ESTIMATED GFR 2022-03-02 Go, Dom Degamo [facility] 08:30:00 Hospital ECG 12-LEAD 2022-03-01 Khris Hunter 20:42:17 Hospital HEMOGLOBIN & HEMATOCRIT 2022-03-01 Go, Ednale Eriklyndsayo Method ist 19:48:00 Hospital TTE COMPLETE, WO CONTRAST, W 2022-03-01 Mitch, Radhatanvir Herzog ethodist DOPPLER ([id number]) 14:54:00 Hospital ECG 12-LEAD 2022-03-01 Khris Hunter 13:17:24 Hospital TRANSFUSE RED BLOOD CELLS 2022-03-01 CarolimpallJoanna mendozao dist 13:14:00 Hospital CBC WITH PLATELET AND DIFFERENTIAL 2022-03-01 Missy Min 11:41:00 Hospital SMEAR REVIEW 2022-03-01 Stefany Barton 11:41:00 Hospital TROPONIN T 2022-03-01 Kermit Greer 01:51:00 [facility] CBC WITH PLATELET AND DIFFERENTIAL 2022-03-01 José Barton 01:51:00 Hospital SMEAR REVIEW 2022-03-01 Stefany Barton 01:51:00 Hospital URINE CULTURE 2022-03-01 Kermit Greer 00:55:00 [facility] URINALYSIS SCREEN AND MICROSCOPY, 2022-03-01 Alka Greer WITH REFLEX TO CULTURE 00:55:00 [facility] URINE DRUGS OF ABUSE SCREEN 2022-03-01 Stefany Bartonodist 00:55:00 Hospital TRANSFUSE RED BLOOD CELLS 2022-02-28 Kermit Greer ist 22:22:[address] [facility] [address] ABDOMEN PELVIS WO CONTRAST 2022-02-28 Stefany Barton 22:03:50 Hospital CBC WITH PLATELET AND DIFFERENTIAL 2022-02-28 José Barton 21:34:00 Hospital SMEAR REVIEW 2022-02-28 Stefany Barton 21:34:00 Hospital THYROID STIMULATING HORMONE 2022-02-28 Stefany Barton ethodist 21:33:00 Hospital FERRITIN LEVEL 2022-02-28 Stefany Barton 21:31:00 Hospital TOTAL IRON BINDING CAPACITY 2022-02-28 Stefany Barton [facility]ist 21:31:00 Hospital LDH 2022-02-28 Stefany Barton 21:31:00 Hospital VITAMIN B12 LEVEL 2022-02-28 Stefany Barton 21:31:00 Hospital FOLATE, RBC 2022-02-28 Stefany Barton 21:31:00 Hospital COVID-19 QUALITATIVE RT-PCR 2022-02-28 Kermit Greer 20:43:00 [facility] OCCULT BLOOD, STOOL 2022-02-28 Kermit Greer 20:13:00 [facility] TROPONIN T 2022-02-28 Kermit Greer 20:06:00 [facility] ABO AND RH CONFIRMATION BY 2022-02-28 Kermit Greer dist PROTOCOL 20:06:00 [facility] XR CHEST 1 VW PORTABLE 2022-02-28 Kermit Greer 18:37:43 [facility] ECG 12-LEAD 2022-02-28 Kermit Greer 18:03:43 [facility] PROTHROMBIN TIME WITH INR 2022-02-28 Kermit Greer ist 18:03:00 [facility] PARTIAL THROMBOPLASTIN TIME (PTT) 2022-02-28 Alka Greer 18:03:00 [facility] TYPE AND SCREEN 2022-02-28 Kermit Greer 18:03:00 [facility] PREPARE RBC 2022-02-28 Dom Meyer 18:03:00 Hospital ESTIMATED GFR 2022-02-28 Kermit Greer 18:02:00 [facility] WI CRITICAL CARE ILL/INJURED 2022-02-28 Greer, Kermit Met hodist PATIENT INIT 30-74 MIN 17:59:51 [facility] ECG ED PRELIMINARY INTERPRETATION 2022-02-28 Alka Greer 17:59:51 [facility] ECG 12-LEAD 2022-02-28 Kermit Greer 17:39:55 [facility] CBC WITH PLATELET AND DIFFERENTIAL 2022-02-28 Yara Greer 17:38:00 [facility] COMPREHENSIVE METABOLIC PANEL 2022-02-28 Kermit Greer Il thodist 17:38:00 [facility] LIPASE LEVEL 2022-02-28 Kermit Greer 17:38:00 [facility] ESTIMATED GFR 2022-02-28 Kermit Greer 17:38:00 [facility] TROPONIN T 2022-02-28 Kermit Greer 17:38:00 [facility] MAGNESIUM LEVEL 2022-02-28 Kermit Greer 17:38:00 [facility] SMEAR REVIEW 2022-02-28 Kermit Greer 17:38:00 [facility] Plan of Care Planned Activity Planned Date Details Comments Source Future Scheduled 2023-03-[address] [facility] Test 00:00:00 (Season Ended) [code = [facility] INFLUENZA VACCINE (Season Ended)] Future Scheduled 2022-12-07 Screening for [facility] Test 13:31:10 malignant neoplasm of colon (procedure) [code = 650420641] Future Scheduled 2022-12-07 Screening for [facility] Test 13:31:10 malignant neoplasm of colon (procedure) [code = 070247524] Future Scheduled 2022-12-07 COVID-19 VACCINE (#1) [facility] Test 13:31:10 [code = COVID-19 VACCINE (#1)] Future Scheduled 2022-12-07 Pneumococcal Vaccine: [facility] Test 13:31:10 Pediatrics (0 to 5 Years) and At-Risk Patients (6 to 64 Years) (1 - PCV) [code = Pneumococcal Vaccine: Pediatrics (0 to 5 Years) and At-Risk Patients (6 to 64 Years) (1 - PCV)] Future Scheduled 2022-12-07 Hepatitis C screening [facility] Test 13:31:10 (procedure) [code = 307547115] Future Scheduled 2022-12-07 Screening for [facility] Test 13:31:10 malignant neoplasm of colon (procedure) [code = 870308326] Future Scheduled 2022-12-07 Screening for [facility] Test 13:31:10 malignant neoplasm of lung (procedure) [code = 951527378] Future Scheduled 2022-12-07 SHINGLES VACCINES (1 Met [facility] Test 13:31:10 of 2) [code = SHINGLES VACCINES (1 of 2)] Future Scheduled 2022-12-07 INFLUENZA VACCINE [facility] Test 13:31:10 [code = INFLUENZA VACCINE] Future Scheduled 2022-12-07 Screening for [facility] Test 13:31:10 malignant neoplasm of colon (procedure) [code = 080078304] Future Scheduled 2022-12-07 Screening for [facility] Test 13:31:10 malignant neoplasm of colon (procedure) [code = 861875328] Future Scheduled 2022-08-09 COVID-19 VACCINE (#1) [facility] Test 10:24:30 [code = COVID-19 VACCINE (#1)] Future Scheduled 2022-08-09 Pneumococcal Vaccine: [facility] Test 10:24:30 Pediatrics (0 to 5 Years) and At-Risk Patients (6 to 64 Years) (1 - PCV) [code = Pneumococcal Vaccine: Pediatrics (0 to 5 Years) and At-Risk Patients (6 to 64 Years) (1 - PCV)] Future Scheduled 2022-08-09 Hepatitis C screening [facility] Test 10:24:30 (procedure) [code = 678900400] Future Scheduled 2022-08-09 COLONOSCOPY SCREENING [facility] Test 10:24:30 [code = COLONOSCOPY SCREENING] Future Scheduled 2022-08-09 Screening for [facility] Test 10:24:30 malignant neoplasm of lung (procedure) [code = 971714543] Future Scheduled 2022-08-09 SHINGLES VACCINES (1 Met [facility] Test 10:24:30 of 2) [code = SHINGLES VACCINES (1 of 2)] Future Scheduled 2022-08-09 INFLUENZA VACCINE Method [facility] Test 10:24:30 [code = INFLUENZA VACCINE] Future Scheduled 2022-07-04 DEPRESSION [address] [facility] Test 00:00:00 (12+) [code = Medical Center DEPRESSION SCREENING (12+)] Future Scheduled 2011 SHINGLES VACCINES ([address] [facility] Test 00:00:00 of 2) [code = SHINGLES Medic al Center VACCINES (1 of 2)] Future Scheduled [address] [facility] Test 00:[facility]:00 (procedure) [code = Medical Center 54206506] Future Scheduled 1980 DTAP/TDAP/TD [facility]ACCINES [facility] Test 00:00:00 (1 - Tdap) [code = Medical C enter DTAP/TDAP/TD VACCINES (1 - Tdap)] Future Scheduled 1979 HEPATITIS C [facility]CRE[facility]ING [facility] Test 00:00:00 [code = HEPATITIS C Medical Center SCREENING] Future Scheduled [address] [facility] Test 00:00:00 Counseling and Medical Cente r Screening (12+) [code = Tobacco Cessation Counseling and Screening (12+)] Future Scheduled 1960 COVID-19 VACCINE (#1) [facility] Test 00:00:00 [code = COVID-[address] VACCINE (#1)] Future Scheduled [address] [facility] [facility] 00:[facility]:00 malignant neoplasm of Medica l Center colon (procedure) [code = 022402332] Future Scheduled 1960 Sigmoidoscopy [code = [facility]] Medical Cente r Future Scheduled [address] [facility] Test 00:00:00 (combo) [code = CT Medical C enter Colonography (combo)] Future Scheduled [address] [facility] Test 00:00:00 malignant neoplasm of Medica l Center colon (procedure) [code = 673014090] Future Scheduled [address] [facility] Test 00:00:00 malignant neoplasm of [facility]ica [facility] Center colon (procedure) [code = 096815827] Future Scheduled [address] [facility] Test 00:00:00 malignant neoplasm of Medica l Center colon (procedure) [code = 838641587] Encounters Start End Encounter Admission Attending Care Care Encounter Source Date/Time Date/Time Type Type Clinicians Facility Department ID 2022-12-07 2022-12-07 Outpatient ART KILGORE [facility] [id number] SLE 00:00:00 00:00:00 2022-12-07 2022-12-07 Outpatient FRANCINE [facility]ANO [facility] [id number] SLE 00:00:00 00:00:00 2022-12-07 2022-12-07 Outpatient ART WATTERS [facility] [id number] [facility] 00:00:00 00:00:00 Levy meneses of Medicin e 2022-12-06 2022-12-06 Orders Art Watters [facility] [id number] 00:[facility] 00[facility]00[facility]00 Only [facility] 2022-02-28 2022-03-03 [facility] Kermit Greer 1.2.840. 1 [id number] Methodi 12:37:00 11:50:00 Encounter Joanna Dyer [id number] [place], Elain 3.430.2.7 Hospita .3.474562 l .8 2022-02-28 2022-03-03 [facility] Kermit Greer 1.2.840. 1 [id number] Methodi 12:37:00 11:50:00 Encounter Joanna Dyer [id number] [place], Elain 3.430.2.7 Hospita .3.112045 l .8 2022-03-02 2022-03-02 Anesthesia Steven Sosa 1.2.840.1 [id number] Methodi 11:44:00 12:27:00 Event Edward [address]41.1.[address] 3.430.2.7 Hospit a .3.014567 l .8 2022-03-02 2022-03-02 Anesthesia Steven Sosa 1.2.840.1 [id number] Methodi 11:44:00 12:27:00 Event Edward [address]805.1.[address] 3.430.2.7 Hospit a .3.325177 l .8 2022-03-02 2022-03-02 Surgery Missy Min 1.2.840.1 [id number] Methodi 11:40:00 12:20:[address] 3.430.2.7 Hospit a .3.220369 l .8 2022-03-02 2022-03-02 Surgery Missy Min 1.2.840.1 [id number] Methodi 11:40:00 12:20:[address] 3.430.2.7 Hospit a .3.941037 l .8 2022-02-28 2022-02-28 Travel 1.2.840.1 1.2.040.696 [id number] Methodi 00:00:00 00:00:[address] 3.430.2.7 0.2.7.3.698 Ho spita .3.097174 084.8 l .8 2022-02-28 2022-02-28 Travel 1.2.840.1 1.2.294.456 [id number] Methodi 00:00:00 00:00:[address] 3.430.2.7 0.2.7.3.698 Ho spita .3.903949 084.8 l .8 Results Test Description Test Time Test Comments Results Result Comments Source ECG 12 lead 2022-04-16 16:16:00 Test Item Value Reference Range Interpretation Comme nts Ventricular rate (test code = 253) 63 Atrial rate (test code = 255) 63 WI interval (test code = 266) 154 QRSD [...] fibrillation-Vent. rate has decreased BY 65 [id number] 16:16:00 Test Item Value Reference Range Interpretation Comments Ventricular rate (test 63 code = 253) Atrial rate (test code 63 = 255) WI interval (test code 154 = 266) QRSD interval (test 92 code = 260) QT interval (test code 380 = 264) QTC interval (test code 388 = 265) P axis 1 (test code = 75 267) QRS axis 1 (test code = 82 268) T wave axis (test code 60 = 270) EKG impression (test Normal sinus rhythm code = 273) with sinus arrhythmia-Normal ECG-In automated comparison with ECG of 01-MAR-2022 08:17,-Sinus rhythm has replaced Atrial fibrillation-Vent. rate has decreased BY 65 [facility] [id number] 22:07:12 Test Item Value Reference Range Interpretation Comments Case number (test code = [id number]) Surgical pathology See link below for report (test code = PDF Lab Report 2255) Result status (test code This is Final Report = [id number]) for [id number] [facility] pathology [id number] 22:07:12 Test Item Value Reference Range Interpretation Comments Case number (test code = [id number]) Surgical pathology See link below for report (test code = PDF Lab Report 2255) Result status (test code This is Final Report = [id number]) for [id number] [facility], (w Contrast, Strain and 3D if needed)2022-03-02 13:38:33 Test Item Value Reference Interpretation Comments Range Ao Root Diameter 3.24 cm (test code = 2685215056) AoV Area, Vmax (test 2.49 cm2 >=1.5 code = 6189685568) AoV Area, VTI (test 2.48 cm2 code = 6810020236) AoV Mean PG (test 4.74 mmHg code = 4158858464) AoV Peak PG (test 6.52 mmHg code = 1406971960) AoV Vmax (test code 1.32 m/s = 0356842237) AoV VTI (test code = 0.26 m 2910789857) BSA Rogers (test code 2.04 m2 = 1416451061) BSA (test code = 2.02 m2 4541249006) IVS,d (test code = 1.50 cm 0.6-1 A 4645265245) IVS/LVPW,2D (test 0.99 code = 6475325613) Left Atrium 4.02 cm Dimension Anterior (test code = 5249598114) LV,d (test code = 4.10 cm 6799080641) LV EF,2D (test code 66.03 % = 8470215614) LV,s (test code = 2.86 cm 2734634784) LVOT area (test code 3.90 cm2 = 3180047548) LVOT Diam,S (test 2.23 cm code = 1116457849) LVOT Vmax (test code 0.81 m/s = 7215944376) LVOT VTI (test code 0.15 m = 5825579996) LVPWD,d (test code = 1.51 cm 0.60-1.19 A 6618053743) PV Pk Grad (test 2.05 mmHg code = 1873104455) PV VMAX (test code = 0.72 m/s 4890770973) TR Vpeak (test code 2.23 m/s = 1562569263) TR pk grad (test 15.71 mmHg code = 6811030510) AoV area i VTI BSA 1.23 cm2/m2 >=0.85 [place] (test code = 9557238395) BMI (test code = 25.24 kg/m2 6963426870) E wave decelartion 122.41 See_Comment A [Automat ed time (test code = message] T he 1202046290) system which generated this result transmitted reference range : 200 msec. The reference range was not used to interpret this result as normal/abnormal . MV valve area p 1/2 6.20 cm2 method (test code = 4924742588) MV Peak E [place] (test 0.78 m/s code = 1759912846) MV stenosis pressure 35.50 ms 1/2 time (test code = 4529608269) LVOT stroke volume 0.59 ml (test code = 7018685704) AV LVOT peak 2.63 mmHg gradient (test code = 9300065569) Ascending aorta 3.51 cm (test code = 5297047613) Ao Root Diameter 3.24 cm (test code = 0061587012) LV SYS VOL (test 31.21 ml 21-61 code = 4797798737) LV CASTANEDA VOL (test 74.35 ml 62-150 code = 0715329361) LA area s A4C (test 22.67 cm2 code = 4563428808) LV SI Teich 2D (test 21.34 ml/m2 code = 2342706618) LV SV Teich 2D (test 43.14 ml code = 4883100730) LV Vol s Teich PSAX 31.21 ml (test code = 9504061034) LVOT CI (test code = 3.27 l/min/m2 4150892918) LVOT CO (test code = 6.62 l/min 9694250586) LVOT HR for LVOT CO 110.63 bpm (test code = 3785788546) LVOT SI (test code = 29.59 ml/m2 1363154800) BSA [place] (test 2.04 m2 code = 7822857949) AoV Vmn (test code = 1.04 m/s 1569729703) IVS s 2D (test code 1.93 cm = 0110897812) LV FS Teich 2D (test 30.22 code = 4790306933) LV FS Cube 2D (test 30.22 code = 0970317490) LVOT Vmn (test code 0.63 = 1254978165) Pt Size (test code = 180.34 6076064347) Pt Wt (test code = 82.10 4308499340) Aov area Vmn (test 2.45 cm2 code = 1321867694) LVOT mean grad (test 1.68 mmHg code = 5013099265) MAX Pred HR (test 159.17 code = 3909635151) 85 of MPHR (test 135.29 code = 9111348490) AoV area I VMN bsa 1.21 cm2/m2 (test code = 9792110658) Calc MPHR (test code 159.17 bpm = 3686527084) IVS pct thck PLAX 29.05 % (test code = 8347946881) LV SI Cube 2D (test 22.56 ml/m2 code = 0457079879) LV SV Cube 2D (test 45.61 ml code = 4539245560) LV vol d cube 2D 69.07 ml (test code = 4375684081) LV vol s cube 2D 23.47 ml (test code = 2194508993) LVPW pct thck PLAX 42.11 % (test code = 1915595803) LVPW s PLAX (test 2.15 cm code = 4887403606) MV Decel slope (test 6.38 m/s2 code = 1086792296) Pred Exer Dur R1 8.58 (test code = 4458073348) Pred METS R1 (test 8.88 code = 4299340020) LA Vol MOD A4C (test 71.69 ml code = 0926362056) Velocity Ratio 0.61 m/s (V1/V2) (test code = 4689) EF (test code = 58 % 2736756310) LVOT VTI (CM) (test 15.00 cm code = 1767085729) SOTO (test code = SOTO) Left Ventricle: [...] performed. Lab Interpretation Abnormal (test code = 72779-2) [facility], (w Contrast, Strain and 3D if needed)2022-03-02 13:38:33 Test Item Value Reference Interpretation Comments Range Ao Root Diameter 3.24 cm (test code = 1179444067) AoV Area, Vmax (test 2.49 cm2 >=1.5 code = 7167456391) AoV Area, VTI (test 2.48 cm2 code = 0425785323) AoV Mean PG (test 4.74 mmHg code = 4033823053) AoV Peak PG (test 6.52 mmHg code = 0047710088) AoV Vmax (test code 1.32 m/s = 7426967232) AoV VTI (test code = 0.26 m 3919364269) BSA Rogers (test code 2.04 m2 = 0458519674) BSA (test code = 2.02 m2 1223629690) IVS,d (test code = 1.50 cm 0.6-1 A 0207273617) IVS/LVPW,2D (test 0.99 code = 9433525044) Left Atrium 4.02 cm Dimension Anterior (test code = 7670426616) LV,d (test code = 4.10 cm 6459411202) LV EF,2D (test code 66.03 % = 2842967343) LV,s (test code = 2.86 cm 3442494569) LVOT area (test code 3.90 cm2 = 1063368267) LVOT Diam,S (test 2.23 cm code = 3808737690) LVOT Vmax (test code 0.81 m/s = 3203294515) LVOT VTI (test code 0.15 m = 0804825981) LVPWD,d (test code = 1.51 cm 0.60-1.19 A 3446382646) PV Pk Grad (test 2.05 mmHg code = 9862988115) PV VMAX (test code = 0.72 m/s 2721312577) TR Vpeak (test code 2.23 m/s = 6675361476) TR pk grad (test 15.71 mmHg code = 6319066379) AoV area i VTI BSA 1.23 cm2/m2 >=0.85 [place] (test code = 2476905156) BMI (test code = 25.24 kg/m2 2820886018) E wave decelartion 122.41 See_Comment A [Automat ed time (test code = message] T he 5407040041) system which generated this result transmitted reference range : 200 msec. The reference range was not used to interpret this result as normal/abnormal . MV valve area p 1/2 6.20 cm2 method (test code = 6434989552) MV Peak E [place] (test 0.78 m/s code = 4029402999) MV stenosis pressure 35.50 ms 1/2 time (test code = 0724307741) LVOT stroke volume 0.59 ml (test code = 1906957536) AV LVOT peak 2.63 mmHg gradient (test code = 7392260222) Ascending aorta 3.51 cm (test code = 5346206797) Ao Root Diameter 3.24 cm (test code = 0818206456) LV SYS VOL (test 31.21 ml 21-61 code = 0415954278) LV CASTANEDA VOL (test 74.35 ml 62-150 code = 8191815569) LA area s A4C (test 22.67 cm2 code = 4633224081) LV SI Teich 2D (test 21.34 ml/m2 code = 5660541321) LV SV Teich 2D (test 43.14 ml code = 3015181358) LV Vol s Teich PSAX 31.21 ml (test code = 4155578639) LVOT CI (test code = 3.27 l/min/m2 6989421059) LVOT CO (test code = 6.62 l/min 7375603904) LVOT HR for LVOT CO 110.63 bpm (test code = 4383340155) LVOT SI (test code = 29.59 ml/m2 1978390039) BSA Haycock (test 2.04 m2 code = 7058327802) AoV Vmn (test code = 1.04 m/s 4814548928) IVS s 2D (test code 1.93 cm = 6654830804) LV FS Teich 2D (test 30.22 code = 2761185099) LV FS Cube 2D (test 30.22 code = 5078273266) LVOT Vmn (test code 0.63 = 2032158572) Pt Size (test code = 180.34 1132113315) Pt Wt (test code = 82.10 1671907344) Aov area Vmn (test 2.45 cm2 code = 2584512213) LVOT mean grad (test 1.68 mmHg code = 3810931707) MAX Pred HR (test 159.17 code = 0953995958) 85 of MPHR (test 135.29 code = 0727291966) AoV area I VMN bsa 1.21 cm2/m2 (test code = 1507403571) Calc MPHR (test code 159.17 bpm = 3646396368) IVS pct thck PLAX 29.05 % (test code = 0479981860) LV SI Cube 2D (test 22.56 ml/m2 code = 7075621308) LV SV Cube 2D (test 45.61 ml code = 4593718312) LV vol d cube 2D 69.07 ml (test code = 5554725349) LV vol s cube 2D 23.47 ml (test code = 0349759504) LVPW pct thck PLAX 42.11 % (test code = 2683501026) LVPW s PLAX (test 2.15 cm code = 6972343221) MV Decel slope (test 6.38 m/s2 code = 1928233604) Pred Exer Dur R1 8.58 (test code = 2482737229) Pred METS R1 (test 8.88 code = 1563027073) LA Vol MOD A4C (test 71.69 ml code = 1093549007) Velocity Ratio 0.61 m/s (V1/V2) (test code = 4689) EF (test code = 58 % 1937264439) LVOT VTI (CM) (test 15.00 cm code = 1850627139) SOTO (test code = SOTO) Left Ventricle: [...] performed. Lab Interpretation Abnormal (test code = 57019-1) [id number] Test Item Value Reference Range Interpretation Comments Urine culture (test SEE COMMENT Bacteriu leah screen code = 8321581) negative. [facility] [id number] 02:34:00 Test Item Value Reference Range Interpretation Comments Urine culture (test SEE COMMENT Bacteriu leah screen code = 7060877) negative. [facility] [Presence] in Respiratory specimen by LISETTE with probe [id number] 01:56:11 Test Item Value Reference Range Interpretation Comments SARS-CoV-2 (COVID-19) RNA Not detected [Presence] in Respiratory specimen by LISETTE with probe detection (test code = 17024-7) Whether patient is employed in a Unknown healthcare setting (test code = 16288-5) Whether the patient has symptoms Unknown related to condition of interest (test code = 87881-6) Whether the patient was Unknown hospitalized for condition of interest (test code = 52177-5) Whether the patient was admitted Unknown to intensive care unit (ICU) for condition of interest (test code = 65988-4) Whether patient resides in a Unknown congregate care setting (test code = 81576-1) status (test code = Unknown 51290-0) Date and time of symptom onset Unknown (test code = 85271-3) [facility]
--- NOTE | 2022-12-07 14:23 | RAD REPORT ---
EXAM DESCRIPTION: CT - Abdomen Pelvis Wo Contrast - 12/07/2022 2:03 pm CLINICAL HISTORY: Abdominal pain. abd pain, constipation, possible prostate cancer, back pain COMPARISON: No comparisons TECHNIQUE: CT imaging of the abdomen and pelvis was performed without contrast. Solid organ, bowel a nd vascular assessment is limited due to lack of IV and oral contrast. All CT scans are performed using dose optimization technique as appropriate and may include automated exposure control or mA/KV adjustment according to patient size. FINDINGS: The lower lung silva are clear. The liver, spleen, pancreas, adrenal glands and kidneys are within normal limits for a limited non-co ntrast examination. No bowel obstruction, free air, free fluid or abscess. The appendix is normal. Extensive bony metastatic disease in the form of sclerotic lesions noted. IMPRESSION: Extensive bony metastatic disease. No pathologic fracture evident. A limited non-contrast examination was performed as detailed.
[2022-12-07 14:35] LABS: Absolute Lymphocytes (CBC) 1.1 K/uL (0.7-4.9); Hematocrit 25.9 % (39.6-49.0); Lymphocytes % 14.5 % (15.3-44.8); MCV 81.8 fL (80-100); MPV 7.2 fL (7.6-11.3); RBC Red Blood Cell Count 3.17 M/uL (4.33-5.43)
[2022-12-07 14:39] LABS: Anisocytosis 2+; Blood Morphology Comment NOTED (NOT SEEN); Platelet Estimate ADEQ; White Blood Cell Scan OK (OK)
[2022-12-07 14:47] LABS: Protime INR 1.33
[2022-12-07] MEDS ORDERED: NA CHLORIDE 0.9% 1,000 ML ONE (14:54)
[2022-12-07 15:15] LABS: Albumin 3.2 g/dL (3.4-5.0); Bilirubin Total 0.2 mg/dL (0.2-1.0); Potassium 3.9 mEq/L (3.5-5.1); Protein, Total 7.4 g/dL (6.4-8.2)
--- NOTE | 2022-12-07 15:32 | EDPHYS ---
Physician Documentation [facility] Name: Amanuel Page Age: 62 yrs Sex: Male : 1960 Arrival Date: 12/07/2022 Time: 13:03 Bed 9 Private MD: ED Physician Shyam Clark HPI: 12/07 14:42 This 62 yrs old Male presents to ER via Ambulatory with complaints of Back Pain. rn 14:42 The patient presents with pain that is chronic, with no known mechanism of injury. The rn symptoms are located in the low back. 14:42 Onset: The symptoms/episode began/occurred "months ago". The pain radiates to the right rn leg. Associated signs and symptoms: Pertinent negatives: abdominal pain, dysuria, fever, hematuria, incontinence, urinary retention, vomiting. The problem was sustained from unknown cause. Modifying factors: The patient symptoms are alleviated by nothing, the patient symptoms are aggravated by any movement. Severity of symptoms: At their worst the symptoms were moderate, in the emergency department the symptoms are unchanged. The patient has not experienced similar symptoms in the past. The patient has been recently seen by a physician:. Pt reports back pain, for "months", told might have a spot on prostate, has been told maybe cancer, but appointment for further w/u not until a few months. No direct trauma or fall. no fever. No incontinence. Suffers from chronic constipation and hemorrhoids, states hemorrhoids bled a few days ago and got worse after taking friend's oxycodone. + constipation but now having bowel movements with laxative. Reports back pain that radiates down right leg. No acute changes, here today because tired of waiting for prolonged w/u.. Historical: - Allergies: 13:20 Iodine; aa5 - PMHx: 13:20 Anemia; Bladder mass; aa5 - Family history:: not pertinent. - Hospitalizations: : No recent hospitalization is reported. ROS: 14:42 Constitutional: Negative for fever, chills, and weight loss, Neck: Negative for injury, rn pain, and swelling, Cardiovascular: Negative for chest pain, palpitations, and edema, Respiratory: Negative for shortness of breath, cough, wheezing, and pleuritic chest pain, Abdomen/GI: + constipation, neg for abd pain Back: + back pain : Negative for injury, bleeding, discharge, and swelling, MS/Extremity: Negative for injury and deformity, Skin: Negative for injury, rash, and discoloration, Neuro: Negative for headache, and seizure. Exam: 14:42 Constitutional: This is a well developed, well nourished patient who is awake, alert, rn and in no acute distress. Head/Face: Normocephalic, atraumatic. Cardiovascular: Regular rate and rhythm. No pulse deficits. Respiratory: No increased work of breathing, no retractions or nasal flaring. Abdomen/GI: soft, non-tender MS/ Extremity: Pulses equal, no cyanosis. Neuro: Awake and alert, GCS 15, oriented to person, place, time, and situation. Vital Signs: 13:20 BP 133 / 78; Pulse 89; Resp 16 S; Temp 97.8(TE); Weight 77.56 kg (R); Height 6 ft. 0 aa5 in. (R); 15:59 BP 122 / 74; Pulse 72; Resp 16; Pulse Ox 98% on R/A; mb9 13:20 Body Mass Index 23.19 (77.56 kg, 182.88 cm) aa5 MDM: 13:17 Patient medically screened. rn 15:29 Differential diagnosis: arthritis, chronic back pain, Fatigue Fracture Neoplasm rn Osteoarthritis ruptured disc, vertebral fracture, metastatic prostate cancer. Data reviewed: vital signs, nurses notes, lab test result(s), radiologic studies, CT scan, and as a result, I will discharge patient. Counseling: I had a detailed discussion with the patient and/or guardian regarding: the historical points, exam findings, and any diagnostic results supporting the discharge/admit diagnosis, lab results, radiology results, the need for outpatient follow up, to return to the emergency department if symptoms worsen or persist or if there are any questions or concerns that arise at home. Response to treatment: the patient's symptoms have mildly improved after treatment, and as a result, I will discharge patient. Special discussion: I discussed with the patient/guardian in detail that at this point there is no indication for admission to the hospital. It is understood, however, that if the symptoms persist or worsen the patient needs to return immediately for re-evaluation. Based on the history and exam findings, there is no indication for further emergent testing or inpatient evaluation. I discussed with the patient/guardian the need to see the clerk supervisor/oncologist for further evaluation of the symptoms. I discussed with the patient/guardian the need to see the primary care provider for further evaluation of the symptoms. ED course: Pt with likely metastatic prostate cancer, sclerotic lesions on spine/pelvis/hips. Explains his pain. Hemoglobin 8 and no longer bleeding for 2 days. Will not transfuse. Will dc home with onc f/u. . 12/07 13:29 Order name: CBC with Diff; Complete Time: 15:14 rn 12/07 13:29 Order name: CMP; Complete Time: 15:32 rn 12/07 13:29 Order name: Lipase; Complete Time: 15:32 rn 12/07 13:29 Order name: Protime (+inr); Complete Time: 15:14 rn 12/07 13:29 Order name: Ptt, Activated; Complete Time: 15:14 rn 12/07 14:39 Order name: CBC Smear Scan; Complete Time: 15:14 EDUT 12/07 14:00 Order name: Abdomen ; Complete Time: 14:38 EDUT 12/07 13:29 Order name: IV Saline Lock; Complete Time: 14:47 rn 12/07 13:29 Order name: Labs collected and sent; Complete Time: 14:47 rn Administered Medications: 14:59 Drug: NS 0.9% IV 1000 ml Route: IV; Rate: 1 bolus; Site: right antecubital; mb9 15:50 Follow up: Response: No adverse reaction; IV Status: Completed infusion mb9 Disposition Summary: 12/07/22 15:31 Discharge Ordered Location: Home rn Problem: an ongoing problem rn Symptoms: have improved rn Condition: Stable rn Diagnosis - Malignant neoplasm of prostate - With metastases suspected rn Followup: rn - With: Nahomi Villasenor MD - When: 2 - 3 days - Reason: Re-evaluation by your physician Discharge Instructions: - Discharge Summary Sheet rn - Bone Metastasis rn - Prostate Cancer rn Forms: - Medication Reconciliation Form rn - Thank You Letter rn - Antibiotic furniture delivery driver - Prescription Opioid Use rn Prescriptions: - Tramadol 50 mg Oral Tablet - take 1 tablet by ORAL route every 8 hours as needed; 15 tablet; Refills: 0, rn Product Selection Permitted Signatures: [facility]patcher [facility] Shyam Clark MD MD rn Calderon, Audri RN RN aa5 Katy Romero RN RN mb9 Corrections: (The following items were deleted from the chart) 14:00 13:30 Abdomen Pelvis W Con+CT.RAD.BRZ ordered. EDMS EDMS
--- NOTE | 2022-12-07 15:32 | ER ---
Nurse's Notes [facility] Name: Amanuel Page Age: 62 yrs Sex: Male : 1960 Arrival Date: 12/07/2022 Time: 13:03 Bed 9 Private MD: Diagnosis: Malignant neoplasm of prostate-With metastases suspected Presentation: 12/07 13:20 Chief complaint: Chief complaint: Patient states: back and hip pain began months ago. aa5 Pt reports rectal bleeding. 13:20 Coronavirus screen: At this time, the client does not indicate any symptoms associated aa5 with coronavirus-19. Ebola Screen: Patient denies travel to an Ebola-affected area in the 21 days before illness onset. Initial Sepsis Screen: Does the patient meet any 2 criteria? No. Patient's initial sepsis screen is negative. Does the patient have a suspected source of infection? No. Patient's initial sepsis screen is negative. Risk Assessment: Do you want to hurt yourself or someone else? Patient reports no desire to harm self or others. Onset of symptoms was 2022. 13:20 Acuity: ANA 3 aa5 13:20 Method Of Arrival: Ambulatory aa5 Historical: - Allergies: 13:20 Iodine; aa5 - PMHx: 13:20 Anemia; Bladder mass; aa5 - Family history:: not pertinent. - Hospitalizations: : No recent hospitalization is reported. Screenin:02 [facility] ED Fall Risk Assessment (Adult) History of falling in the last 3 months, mb9 including since admission No falls in past 3 months (0 pts) Confusion or Disorientation No (0 pts) Intoxicated or Sedated No (0 pts) Impaired Gait No (0 pts) Mobility Assist Device Used No (0 pt) Altered Elimination No (0 pt) Score/Fall Risk Level 0 - 2 = Low Risk Oriented to surroundings, Maintained a safe environment, Educated pt \\T\\ family on fall prevention, incl call for assistance when getting out of bed. Abuse screen: Denies threats or abuse. Nutritional screening: No deficits noted. Tuberculosis screening: No symptoms or risk factors identified. Assessment: 15:03 General: Appears in no apparent distress. Behavior is calm, cooperative. Pain: mb9 Complains of pain in pelvis Pain radiates to right leg. Neuro: Jaeger Agitation-Sedation Scale (RASS): 0 - Alert and Calm Level of Consciousness is awake, alert, obeys commands, Oriented to person, place, time, situation, Appropriate for age. Cardiovascular: Heart tones S1 S2 present. Respiratory: Airway is patent Respiratory effort is even, unlabored, Respiratory pattern is regular, symmetrical. GI: Abdomen is flat, non-distended, Bowel sounds present X 4 quads. Abd is soft and non tender X 4 quads. Patient currently denies nausea. GI: Reports rectal bleeding, bloody stool, since midnight. Pt states "If I have a BM, I still bleed. It's bright red" Patient currently denies constipation, diarrhea. :. Derm: Skin is intact, Skin is dry, Skin is pale, Skin temperature is cool. Musculoskeletal: Range of motion: intact in all extremities. 15:59 Reassessment: No changes from previously documented assessment. Patient and/or family mb9 updated on plan of care and expected duration. Pain level reassessed. Patient is alert, oriented x 3, equal unlabored respirations, skin warm/dry/pink. Vital Signs: 13:20 BP 133 / 78; Pulse 89; Resp 16 S; Temp 97.8(TE); Weight 77.56 kg (R); Height 6 ft. 0 aa5 in. (R); 15:59 BP 122 / 74; Pulse 72; Resp 16; Pulse Ox 98% on R/A; mb9 13:20 Body Mass Index 23.19 (77.56 kg, 182.88 cm) aa5 ED Course: 13:11 Patient arrived in ED. im 13:17 Shyam Clark MD is Attending Physician. rn 13:20 Arm band placed on. aa5 13:32 Triage completed. aa5 13:46 Radiology exam delayed due to lab results not completed at this time. (BUN/Creatinine) jg10 IV insertion attempt and/or patient not having appropriate IV at this time. 14:04 Abdomen In Process Unspecified. EDMS 14:42 Katy Romero, RN is Primary Nurse. mb9 14:59 Inserted saline lock: 20 gauge in right antecubital area, using aseptic technique. mb9 15:02 Placed in gown. Bed in low position. Call light in reach. Side rails up X 1. Client mb9 placed on continuous cardiac and pulse oximetry monitoring. NIBP monitoring applied. 15:02 No provider procedures requiring assistance completed. mb9 15:30 Nahomi Villasenor MD is Referral Physician. rn 15:52 IV discontinued, intact, bleeding controlled, No redness/swelling at site. Pressure mb9 dressing applied. Administered Medications: 14:59 Drug: NS 0.9% IV 1000 ml Route: IV; Rate: 1 bolus; Site: right antecubital; mb9 15:50 Follow up: Response: No adverse reaction; IV Status: Completed infusion mb9 Medication: 15:02 VIS not applicable for this client. mb9 Outcome: 15:31 Discharge ordered by MD. rn 15:59 Discharged to home ambulatory. mb9 15:59 Condition: stable 15:59 Discharge instructions given to patient, Instructed on discharge instructions, follow up and referral plans. Demonstrated understanding of instructions, follow-up care, medications, Prescriptions given X 1. 15:59 Patient left the ED. mb9 Signatures: Dispatcher [employer] EDMS Shyam Clark MD MD rn Calderon, Audri, RN RN aa5 [facility] [place] Romero RN RN mb9 Shruthi Pedersen Corrections: (The following items were deleted from the chart) 13:32 13:20 Chief complaint: aa5 aa5 13:34 13:20 Chief complaint: aa5 aa5 13:34 13:20 BP 133 / 78; Pulse 89bpm; Resp 16bpm; Spontaneous; Temp 97.8F Temporal; aa5 aa5
[2022-12-07 16:13] VITALS: TEMP 97.8
[2022-12-07 16:19] VITALS: BP 122/74; O2SAT 98
== END 2022-12-07 15:59 | disposition home or self-care (01) ==
LOC: ER 13:03
DX: C61 Malignant neoplasm of prostate (principal)
CPT/HCPCS: 36415; 74176; 80053; 83690; 85025; 85610; 85730; 96360; 99284; J7030

== ENCOUNTER 2023-01-16 11:53 | Emergency (ER) | payer OTHER, SELFPAY ==
--- OUTSIDE RECORDS SUMMARY | 2023-01-16 11:58 | XMS REPORT | Continuity of Care Document ---
:1960 Author Organization [facility] t Address [address] [place] [address] Care Team Providers Name Role Phone Asked, No Pcp Primary Care Physician Unavailable ART WATTERS Attending Clinician Unavailable Felix CARVALHO, Art Caal Attending Clinician Kermit Greer MD Attending Clinician [phone] Joanna Dyer DO Attending Clinician Ronald Vaughan DO Attending Clinician Sheila CARVALHO, Steven Liu Attending Clinician Missy Min MD Attending Clinician JOANNA DYER Admitting Clinician Unavailable Payers Payer Name Policy Type Policy Number Effective Date Expiration Date S vinod [facility] CHOICE [id number] 2022 00:00:00 CARD AND PC3 Problems Condition Condition Condition Status Onset [...] Added automatic ally from request for surgery [id number] Rectal Rectal Disease Active Overview: Method i bleeding bleeding 02-[address] 00:00: g of this Hospita 00 note l might be different from the original. Added automatic ally from request for surgery [id number] Allergies, Adverse Reactions, Alerts Allergy Allergy Status [...] Start Date Stop Date Source Natural father [facility] Natural mother [facility] Social History Social Habit Start Date Stop Date Quantity Comments Source History of tobacco Cigarette Smoker [facility] Gender identity [facility] Sexual orientation [facility] Alcohol intake 2022-03-03 2022-03-03 Ex-drinker [facility] 00:[facility]:00 00:00:00 (finding) Hospital History of Social 2022-03-03 2022-03-[address] function 00:00:00 00:00:00 Hospital Tobacco use and 2022-02-28 2022-02-28 Smokeless [facility] exposure 00:00:00 00:00:00 tobacco non-user Hospital Cigarettes smoked 2022-02-28 2022-02-28 [facility] current (pack per 00:00:00 00:00:00 Hospita l day) - Reported Cigarette 2022-02-28 2022-02-28 [facility] pack-years 00:00:00 00:00:00 Hospital Sex Assigned At [birth year] [facility] 00:00:00 00:00:00 Hospital Smoking Status Start Date Stop Date Source Smokes tobacco daily 2022-02-28 00:00:00 [facility] Medications Ordered Filled Start Stop Current Ordering [...] :00 daily for l 60 days. diltiazem 2021-2021- No 30mg Q.5D Take 1 Metho di [...] daily with breakfast for 30 days. diltiazem No 30mg Q.5D Take 1 [...] pressure Diastolic blood 2022-03-03 16:16:41 68 mm[Hg] [facility] pressure Heart rate 2022-03-03 16:16:41 71 /min [facility] Body temperature 2022-03-03 16:16:[address] [facility] Respiratory rate 2022-03-03 16:16:41 18 /min [facility] Oxygen saturation in 2022-03-03 16:16:41 98 /min [facility] Arterial blood by Pulse oximetry Body weight 2022-03-02 12:30:00 78.9 kg [facility] BMI 2022-03-02 12:30:00 24.26 kg/m2 [facility] Body height 2022-02-28 23:29:00 180.3 cm [facility] Procedures Procedure Date / Time Performing Source Performed Clinician CBC WITH PLATELET AND DIFFERENTIAL 2022-03-03 Missy Min 11:16:00 [facility] BASIC METABOLIC PANEL 2022-03-03 Ronald Vaughan [facility] 11:16:00 Hospital MAGNESIUM LEVEL 2022-03-03 Clement Elrenny [facility] 11:16:00 [facility] ESTIMATED GFR 2022-03-03 Ronald Vaughan [facility] 11:16:00 Hospital TRANSFUSE RED BLOOD CELLS 2022-03-02 Mitch, Giezle Degamo Meth odist 18:45:00 [facility] SURGICAL PATHOLOGY REQUEST 2022-03-02 Ronald Vaughano dist 18:10:00 [facility] ESOPHAGOGASTRODUODENOSCOPY (EGD) 2022-03-02 Missy Min 16:45:00 [facility] COLONOSCOPY 2022-03-02 Missy Min 16:45:00 [facility] ZZCOVID-19 ANTI-SPIKE IGG ANTIBODY 2022-03-02 Kwaku Hadleyist TITER 08:30:00 [facility] CBC WITH PLATELET AND DIFFERENTIAL 2022-03-02 Missy Min 08:30:00 [facility] BASIC METABOLIC PANEL 2022-03-02 Go, Giezle Degamo Methodis t 08:30:00 Hospital PHOSPHORUS LEVEL 2022-03-02 Go, Giezle Degamo [facility] 08:30:00 Hospital MAGNESIUM LEVEL 2022-03-02 Go, Giezle Degamo [facility] 08:30:00 [facility] ZZCOVID-19 SEROLOGY PATIENT 2022-03-02 Bryan Hadley odist SURVEILLANCE 08:30:00 [facility] ESTIMATED GFR 2022-03-02 Go, Giezle Degamo [facility] 08:30:00 [facility] ECG 12-LEAD 2022-03-01 Khris Hunter [facility] 20:42:17 Hospital HEMOGLOBIN & HEMATOCRIT 2022-03-01 Go, Giezle Degamo Method ist 19:48:00 Hospital TTE COMPLETE, WO CONTRAST, W 2022-03-01 Dom Meyer ethreecest DOPPLER ([id number]) 14:54:00 Hospital ECG 12-LEAD 2022-03-01 Khris Hunterist 13:17:24 Hospital TRANSFUSE RED BLOOD CELLS 2022-03-01 Joanna Dyer dist 13:14:00 Hospital CBC WITH PLATELET AND DIFFERENTIAL 2022-03-01 Missy Min 11:41:00 Hospital SMEAR REVIEW 2022-03-01 Stefany Barton 11:41:00 Hospital TROPONIN T 2022-03-01 Kermit Greer 01:51:00 [facility] CBC WITH PLATELET AND DIFFERENTIAL 2022-03-01 José [facility] 01:51:00 Hospital SMEAR REVIEW 2022-03-01 Stefany [facility] 01:51:00 Hospital URINE CULTURE 2022-03-01 Kermit Greer 00:55:00 [facility] URINALYSIS SCREEN AND MICROSCOPY, 2022-03-01 Alka Greer WITH REFLEX TO CULTURE 00:55:00 [facility] URINE DRUGS OF ABUSE SCREEN 2022-03-01 Stefany Barton 00:55:00 Hospital TRANSFUSE RED BLOOD CELLS 2022-02-28 Kermit Greer ist 22:22:[address] [facility] [address] ABDOMEN PELVIS WO CONTRAST 2022-02-28 Stefany Barton 22:03:50 [facility] CBC WITH PLATELET AND DIFFERENTIAL 2022-02-28 [...] COVID-19 QUALITATIVE RT-PCR 2022-02-28 Kermit Greer 20:43:00 [facility] OCCULT BLOOD, STOOL 2022-02-28 Kermit Greer 20:13:00 [facility] TROPONIN T 2022-02-28 Kermit Greer 20:06:00 [facility] ABO AND RH CONFIRMATION BY 2022-02-28 Kermit Greer dist PROTOCOL 20:06:00 [facility] XR CHEST 1 VW PORTABLE 2022-02-28 Kermit Greer 18:37:43 [facility] ECG 12-LEAD 2022-02-28 Kermit Greer 18:03:43 [facility] PROTHROMBIN TIME WITH INR 2022-02-28 Kermit Greer ist 18:03:00 [facility] PARTIAL THROMBOPLASTIN TIME (PTT) 2022-02-28 Alka Greer 18:03:00 [facility] TYPE AND SCREEN 2022-02-28 Kermit Greer 18:03:00 [facility] PREPARE RBC 2022-02-28 GoDom Degamo [facility] 18:03:00 Hospital ESTIMATED GFR 2022-02-28 Kermit Greer 18:02:00 [facility] AL CRITICAL CARE ILL/INJURED 2022-02-28 Kermit Greer PATIENT INIT 30-74 MIN 17:59:51 [facility] ECG ED PRELIMINARY INTERPRETATION 2022-02-28 Alka Greer 17:59:51 [facility] ECG 12-LEAD 2022-02-28 Kermit Greer 17:39:55 [facility] CBC WITH PLATELET AND DIFFERENTIAL 2022-02-28 Yara Greer 17:38:00 [facility] COMPREHENSIVE METABOLIC PANEL 2022-02-28 Kermit Greer thodist 17:38:00 [facility] LIPASE LEVEL 2022-02-28 Kermit Greer 17:38:00 [facility] ESTIMATED GFR 2022-02-28 Kermit Greer 17:38:00 [facility] TROPONIN T 2022-02-28 Kermit Greer 17:38:00 [facility] MAGNESIUM LEVEL 2022-02-28 Kermit Greer 17:38:00 [facility] SMEAR REVIEW 2022-02-28 Kermit Greer [facility] 17:38:00 [facility] Plan of Care Planned Activity Planned Date Details Comments Source Future Scheduled 2023-03-04 Influenza Vaccine (#1) [facility] 00:[facility]00 [code = Influenza Medical Ce nter Vaccine (#1)] Future Scheduled 2023-03-[address] [facility] 00:00:00 (Season Ended) [code = Medic al Center INFLUENZA VACCINE (Season Ended)] Future Scheduled 2022-12-20 [facility] Test 20:34:56 malignant neoplasm of colon (procedure) [code = 933008430] Future Scheduled 2022-12-20 [facility] for [facility] Test 20:34:56 malignant neoplasm of colon (procedure) [code = 880566793] Future Scheduled 2022-12-20 COVID-19 VACCINE (#1) [facility] Test 20:34:56 [code = COVID-19 VACCINE (#1)] Future Scheduled 2022-12-20 Pneumococcal Vaccine: [facility] Test 20:34:56 Pediatrics (0 to 5 Years) and At-Risk Patients (6 to 64 Years) (1 - PCV) [code = Pneumococcal Vaccine: Pediatrics (0 to 5 Years) and At-Risk Patients (6 to 64 Years) (1 - PCV)] Future Scheduled 2022-12-20 Hepatitis C screening [facility] Test 20:34:56 (procedure) [code = 882097490] Future Scheduled 2022-12-20 [facility] for [facility] Test 20:34:56 malignant neoplasm of colon (procedure) [code = 555385265] Future Scheduled 2022-12-20 [facility] for [facility] Test 20:34:56 malignant neoplasm of lung (procedure) [code = 592357173] Future Scheduled 2022-12-20 SHINGLES VACCINES (1 [facility] 20:34:56 of 2) [code = SHINGLES VACCINES (1 of 2)] Future Scheduled 2022-12-20 INFLUENZA VACCINE [facility] 20:34:56 [code = INFLUENZA VACCINE] Future Scheduled 2022-12-20 [facility] Test 20:34:56 malignant neoplasm of colon (procedure) [code = 481720204] Future Scheduled 2022-12-20 [facility] Test 20:34:56 malignant neoplasm of colon (procedure) [code = 280791364] Future Scheduled 2022-12-07 [facility] Test 13:31:10 malignant neoplasm of colon (procedure) [code = 157648857] Future Scheduled 2022-12-07 [facility] Test 13:31:10 malignant neoplasm of colon (procedure) [code = 513213805] Future Scheduled 2022-12-07 COVID-19 VACCINE (#1) [facility] Test 13:31:10 [code = COVID-19 VACCINE (#1)] Future Scheduled 2022-12-07 Pneumococcal Vaccine: [facility] Test 13:31:10 Pediatrics (0 to 5 Years) and At-Risk Patients (6 to 64 Years) (1 - PCV) [code = Pneumococcal Vaccine: Pediatrics (0 to 5 Years) and At-Risk Patients (6 to 64 Years) (1 - PCV)] Future Scheduled 2022-12-07 Hepatitis C screening [facility] Test 13:31:10 (procedure) [code = 790640582] Future Scheduled 2022-12-07 [facility] Test 13:31:10 malignant neoplasm of colon (procedure) [code = 828422434] Future Scheduled 2022-12-07 [facility] Test 13:31:10 malignant neoplasm of lung (procedure) [code = 104385530] Future Scheduled 2022-12-07 SHINGLES VACCINES (1 [facility] 13:31:10 of 2) [code = SHINGLES VACCINES (1 of 2)] Future Scheduled 2022-12-07 INFLUENZA VACCINE [facility] Test 13:31:10 [code = INFLUENZA VACCINE] Future Scheduled 2022-12-07 [facility] Test 13:31:10 malignant neoplasm of colon (procedure) [code = 027466456] Future Scheduled 2022-12-07 [facility] for [facility] Test 13:31:10 malignant neoplasm of colon (procedure) [code = 402803541] Future Scheduled 2022-08-09 COVID-19 VACCINE (#1) [facility] Test 10:24:30 [code = COVID-19 VACCINE (#1)] Future Scheduled 2022-08-09 Pneumococcal Vaccine: [facility] Test 10:24:30 Pediatrics (0 to 5 Years) and At-Risk Patients (6 to 64 Years) (1 - PCV) [code = Pneumococcal Vaccine: Pediatrics (0 to 5 Years) and At-Risk Patients (6 to 64 Years) (1 - PCV)] Future Scheduled 2022-08-09 Hepatitis C screening [facility] Test 10:24:30 (procedure) [code = 277268221] Future Scheduled 2022-08-09 COLONOSCOPY SCREENING [facility] Test 10:24:30 [code = COLONOSCOPY SCREENING] Future Scheduled 2022-08-09 Screening for [facility] Test 10:24:30 malignant neoplasm of lung (procedure) [code = 785812662] Future Scheduled 2022-08-09 SHINGLES VACCINES (1 Met [facility] Test 10:24:30 of 2) [code = SHINGLES VACCINES (1 of 2)] Future Scheduled 2022-08-09 INFLUENZA VACCINE Method [facility] Test 10:24:30 [code = INFLUENZA VACCINE] Future Scheduled 2022-07-[address] [facility] Test 00:00:00 (12+) [code = [facility] DEPRESSION SCREENING (12+)] Future Scheduled 2022-07-[address] [facility] Test 00:00:00 (12+) [code = Medical Center DEPRESSION SCREENING (12+)] Future Scheduled 2011 SHINGLES VACCINES ([address] [facility] Test 00:00:00 of 2) [code = SHINGLES Medic al Center VACCINES (1 of 2)] Future Scheduled 2011 SHINGLES VACCINES ([address] [facility] Test 00:00:00 of 2) [code = SHINGLES Medic al Center VACCINES (1 of 2)] Future Scheduled [address] [facility] 00:[facility]:00 (procedure) [code = [facility] 64244521] Future Scheduled [address] [facility] 00:00:00 (procedure) [code = [facility] 62571439] Future Scheduled 1980 DTAP/TDAP/TD [facility]ACCINES [facility]00 (1 - Tdap) [code = Medical C enter DTAP/TDAP/TD VACCINES (1 - Tdap)] Future Scheduled 1980 DTAP/TDAP/TD VACCINES [facility] 00:00:00 (1 - Tdap) [code = Medical C enter DTAP/TDAP/TD VACCINES (1 - Tdap)] Future Scheduled 1979 HE[facility]ITIS C [facility]CRE[facility]ING [facility]:00:00 [code = HEPATITIS C Medical Center SCREENING] Future Scheduled 1979 HEPATITIS C [facility]:00:00 [code = HEPATITIS C Medical Center SCREENING] Future Scheduled [address] [facility] Test 00:00:00 Counseling and Medical Cente r Screening (12+) [code = Tobacco Cessation Counseling and Screening (12+)] Future Scheduled [address] [facility] Test 00:00:00 Counseling and Medical Cente r Screening (12+) [code = Tobacco Cessation Counseling and Screening (12+)] Future Scheduled 1961 COVID-19 VACCINE (#1) [facility] 00:[facility]:00 [code = COVID-[address] VACCINE (#1)] Future Scheduled 1960 COVID-19 VACCINE (#1) [facility] 00:00:00 [code = COVID-[address] VACCINE (#1)] Future Scheduled [address] [facility] [facility] 00:[facility]:00 malignant neoplasm of Medica l Center colon (procedure) [code = 613093867] Future Scheduled 1960 Sigmoidoscopy [code [facility]] Medical Cente r Future Scheduled [address] [facility] 00:[facility]:00 (combo) [code = CT Medical C enter Colonography (combo)] Future Scheduled [address] [facility] [facility] 00:00:00 malignant neoplasm of Medica l Center colon (procedure) [code = 762863316] Future Scheduled [address] [facility] 00:00:00 malignant neoplasm of Medica l Center colon (procedure) [code = 589208742] Future Scheduled [address] [facility] 00:00:00 malignant neoplasm of Medica l Center colon (procedure) [code = 631148238] Future Scheduled [address] [facility] 00:00:00 malignant neoplasm of Medica l Center colon (procedure) [code = 878514648] Future Scheduled 1960 Sigmoidoscopy [facility] Medical Cente r Future Scheduled [address] [facility] 00:00:00 (combo) [code = CT Medical C enter Colonography (combo)] Future Scheduled [address] [facility] 00:00:00 malignant neoplasm of Medica l Center colon (procedure) [code = 412519337] Future Scheduled [address] [facility] Test 00:00:00 malignant neoplasm of Medica l Center colon (procedure) [code = 670055554] Future Scheduled [address] [facility] Test 00:00:00 malignant neoplasm of Medica l Center colon (procedure) [code = 360374660] Encounters Start End Encounter Admission Attending Care Care Encounter Source Date/Time Date/Time Type Type Clinicians Facility Department ID 2022-12-07 2022-12-07 Outpatient ART [facility] [id number] [facility] 00:00:00 00:00:00 2022-12-07 2022-12-07 Outpatient [facility] [id number] [facility] 00:00:00 00:00:00 2022-12-06 2022-12-06 Orders Art Watters [facility] [id number] [facility]00 Only [facility] 2022-12-06 2022-12-06 Orders Art Watters [facility] [id number] 00[facility] 00[facility]00 Only [facility] 2022-02-28 2022-03-03 [facility] Kermit Greer 1.2.840. 1 [id number] Methodi 12:37:00 11:50:00 Encounter Joanna Dyer [id number] [place], [place] 3.430.2.7 Hospita .3.432391 l .8 2022-02-28 2022-03-03 [facility] Kermit Greer 1.2.840. 1 [id number] [facility] 12:37:00 11:50:00 Encounter Joanna Dyer [id number] Ronald Vaughan 3.430.2.7 Hospita .3.197580 l .8 2022-03-02 2022-03-02 Anesthesia Steven Sosa 1.2.840.1 [id number] [facility]i 11:44:00 12:27:00 Event Edward 44391.1.[address] 3.430.2.7 Hospit a .3.906112 l .8 2022-03-02 2022-03-02 Anesthesia Steven Sosa 1.2.840.1 [id number] [facility]i 11:44:00 12:27:00 Event Edward 95545.1.[address] 3.430.2.7 Hospit a .3.863342 l .8 2022-03-02 2022-03-02 Surgery Missy Min 1.2.840.1 [id number] [facility] 11:40:00 12:20:[address] 3.430.2.7 Hospit a .3.370017 l .8 2022-03-02 2022-03-02 Surgery Missy Min 1.2.840.1 [id number] [facility] 11:40:00 12:20:[address] 3.430.2.7 Hospit a .3.036926 l .8 2022-02-28 2022-02-28 Travel 1.2.840.1 1.2.722.478 [id number] [facility]i 00:00:00 00:00:[address] 3.430.2.7 0.2.7.3.698 Ho spita .3.929189 084.8 l .8 2022-02-28 2022-02-28 Travel 1.2.840.1 1.2.353.280 [id number] [facility]i 00:00:00 00:00:[address] 3.430.2.7 0.2.7.3.698 Ho spita .3.192624 084.8 l .8 Results Test Description Test Time Test Comments Results Result Comments Source ECG 12 lead 2022-04-16 16:16:00 Test Item Value Reference Range Interpretation Comme nts Ventricular rate (test code = 253) 63 Atrial rate (test code = 255) 63 AL interval (test code = 266) 154 QRSD [...] fibrillation-Vent. rate has decreased BY 65 BPM- [address]2022-10-14 16:16:00 Test Item Value Reference Range Interpretation Comments Ventricular rate (test 63 code = 253) Atrial rate (test code 63 = 255) AL interval (test code 154 = 266) QRSD [...] fibrillation-Vent. rate has decreased BY 65 BPM- [address]2022-10-14 16:16:00 Test Item Value Reference Range Interpretation Comments Ventricular rate (test 63 code = 253) Atrial rate (test code 63 = 255) AL interval (test code 154 = 266) QRSD [...] fibrillation-Vent. rate has decreased BY 65 BPM- [facility] pathology [id number] 22:07:12 Test Item Value Reference Range Interpretation Comments Case number (test code = [id number]) Surgical pathology See link below for report (test code = PDF Lab Report 2255) Result status (test code This is Final Report = [id number]) for [id number] [facility] pathology [id number] 22:07:12 Test Item Value Reference Range Interpretation Comments Case number (test code = [id number]) Surgical pathology See link below for report (test code = PDF Lab Report 2255) Result status (test code This is Final Report = [id number]) for [id number] [facility] pathology [id number] 22:07:12 Test Item Value Reference Range Interpretation Comments Case number (test code = [id number]) Surgical pathology See link below for report (test code = PDF Lab Report 2255) Result status (test code This is Final Report = [id number]) for [id number] [facility], (w Contrast, Strain and 3D if needed)2022-03-02 13:38:33 Test Item Value Reference Interpretation Comments Range Ao Root Diameter 3.24 cm (test code = 4401233150) AoV Area, Vmax (test 2.49 cm2 >=1.5 code = 0339286099) AoV Area, VTI (test 2.48 cm2 code = 2708141016) AoV Mean PG (test 4.74 mmHg code = 3759045197) AoV Peak PG (test 6.52 mmHg code = 1446750021) AoV Vmax (test code 1.32 m/s = 9719857356) AoV VTI (test code = 0.26 m 8032475953) BSA Rogers (test code 2.04 m2 = 9941167904) BSA (test code = 2.02 m2 2253885278) IVS,d (test code = 1.50 cm 0.6-1 A 7007404158) IVS/LVPW,2D (test 0.99 code = 5097104695) Left Atrium 4.02 cm Dimension Anterior (test code = 6359764751) LV,d (test code = 4.10 cm 9675054107) LV EF,2D (test code 66.03 % = 8746076619) LV,s (test code = 2.86 cm 2877387787) LVOT area (test code 3.90 cm2 = 0750573680) LVOT Diam,S (test 2.23 cm code = 0281667129) LVOT Vmax (test code 0.81 m/s = 1994581132) LVOT VTI (test code 0.15 m = 4846575148) LVPWD,d (test code = 1.51 cm 0.60-1.19 A 3675322518) PV Pk Grad (test 2.05 mmHg code = 3824997615) PV VMAX (test code = 0.72 m/s 2628064655) TR Vpeak (test code 2.23 m/s = 7225458129) TR pk grad (test 15.71 mmHg code = 3435417974) AoV area i VTI BSA 1.23 cm2/m2 >=0.85 Bailey (test code = 1787221377) BMI (test code = 25.24 kg/m2 7374259815) E wave decelartion 122.41 See_Comment A [Automat ed time (test code = message] T he 3768851526) system which generated this result transmitted reference range : 200 msec. The reference range was not used to interpret this result as normal/abnormal . MV valve area p 1/2 6.20 cm2 method (test code = 1435609533) MV Peak E [place] (test 0.78 m/s code = 6581096646) MV stenosis pressure 35.50 ms 1/2 time (test code = 3727685250) LVOT stroke volume 0.59 ml (test code = 1312537009) AV LVOT peak 2.63 mmHg gradient (test code = 4276194135) Ascending aorta 3.51 cm (test code = 6458376627) Ao Root Diameter 3.24 cm (test code = 5157505394) LV SYS VOL (test 31.21 ml 21-61 code = 5362619985) LV CASTANEDA VOL (test 74.35 ml 62-150 code = 7906645604) LA area s A4C (test 22.67 cm2 code = 9291759125) LV SI Teich 2D (test 21.34 ml/m2 code = 5547047389) LV SV Teich 2D (test 43.14 ml code = 4339942371) LV Vol s Teich PSAX 31.21 ml (test code = 2184167987) LVOT CI (test code = 3.27 l/min/m2 1437432115) LVOT CO (test code = 6.62 l/min 6664951193) LVOT HR for LVOT CO 110.63 bpm (test code = 1766154416) LVOT SI (test code = 29.59 ml/m2 3339542326) BSA Haycock (test 2.04 m2 code = 6748930910) AoV Vmn (test code = 1.04 m/s 1838126497) IVS s 2D (test code 1.93 cm = 4698069015) LV FS Teich 2D (test 30.22 code = 0382306686) LV FS Cube 2D (test 30.22 code = 7900436717) LVOT Vmn (test code 0.63 = 7479249125) Pt Size (test code = 180.34 2723507413) Pt Wt (test code = 82.10 2779009657) Aov area Vmn (test 2.45 cm2 code = 7360776324) LVOT mean grad (test 1.68 mmHg code = 9075209577) MAX Pred HR (test 159.17 code = 6722624967) 85 of MPHR (test 135.29 code = 5938984013) AoV area I VMN bsa 1.21 cm2/m2 (test code = 4360117743) Calc MPHR (test code 159.17 bpm = 4779239500) IVS pct thck PLAX 29.05 % (test code = 6732324381) LV SI Cube 2D (test 22.56 ml/m2 code = 2595010228) LV SV Cube 2D (test 45.61 ml code = 9899758667) LV vol d cube 2D 69.07 ml (test code = 6309662749) LV vol s cube 2D 23.47 ml (test code = 0388616790) LVPW pct thck PLAX 42.11 % (test code = 7611553811) LVPW s PLAX (test 2.15 cm code = 6665283858) MV Decel slope (test 6.38 m/s2 code = 8054117716) Pred Exer Dur R1 8.58 (test code = 5207397554) Pred METS R1 (test 8.88 code = 4132283379) LA Vol MOD A4C (test 71.69 ml code = 7457148383) Velocity Ratio 0.61 m/s (V1/V2) (test code = 4689) EF (test code = 58 % 4888786246) LVOT VTI (CM) (test 15.00 cm code = 3318218595) SOTO (test code = SOTO) Left Ventricle: [...] performed. Lab Interpretation Abnormal (test code = 35269-8) [facility], (w Contrast, Strain and 3D if needed)2022-03-02 13:38:33 Test Item Value Reference Interpretation Comments Range Ao Root Diameter 3.24 cm (test code = 9787357533) AoV Area, Vmax (test 2.49 cm2 >=1.5 code = 9948103822) AoV Area, VTI (test 2.48 cm2 code = 6625374633) AoV Mean PG (test 4.74 mmHg code = 7123801243) AoV Peak PG (test 6.52 mmHg code = 9489671432) AoV Vmax (test code 1.32 m/s = 7580790842) AoV VTI (test code = 0.26 m 4051616519) BSA Rogers (test code 2.04 m2 = 9784574840) BSA (test code = 2.02 m2 7883026399) IVS,d (test code = 1.50 cm 0.6-1 A 6564595010) IVS/LVPW,2D (test 0.99 code = 5087652185) Left Atrium 4.02 cm Dimension Anterior (test code = 3849552462) LV,d (test code = 4.10 cm 9055130310) LV EF,2D (test code 66.03 % = 9874222861) LV,s (test code = 2.86 cm 8350771589) LVOT area (test code 3.90 cm2 = 7325946174) LVOT Diam,S (test 2.23 cm code = 9197431199) LVOT Vmax (test code 0.81 m/s = 1752536121) LVOT VTI (test code 0.15 m = 4327082620) LVPWD,d (test code = 1.51 cm 0.60-1.19 A 7233101971) PV Pk Grad (test 2.05 mmHg code = 8414329524) PV VMAX (test code = 0.72 m/s 4713339252) TR Vpeak (test code 2.23 m/s = 0678283206) TR pk grad (test 15.71 mmHg code = 7051862826) AoV area i VTI BSA 1.23 cm2/m2 >=0.85 Bailey (test code = 8552757649) BMI (test code = 25.24 kg/m2 7223211461) E wave decelartion 122.41 See_Comment A [Automat ed time (test code = message] T he 1127807601) system which generated this result transmitted reference range : 200 msec. The reference range was not used to interpret this result as normal/abnormal . MV valve area p 1/2 6.20 cm2 method (test code = 9473566626) MV Peak E [place] (test 0.78 m/s code = 8757668735) MV stenosis pressure 35.50 ms 1/2 time (test code = 1168037107) LVOT stroke volume 0.59 ml (test code = 8900394054) AV LVOT peak 2.63 mmHg gradient (test code = 6904105171) Ascending aorta 3.51 cm (test code = 7541774620) Ao Root Diameter 3.24 cm (test code = 8142212256) LV SYS VOL (test 31.21 ml 21-61 code = 9807964527) LV CASTANEDA VOL (test 74.35 ml 62-150 code = 5588025967) LA area s A4C (test 22.67 cm2 code = 2898483050) LV SI Teich 2D (test 21.34 ml/m2 code = 8337333545) LV SV Teich 2D (test 43.14 ml code = 2459060058) LV Vol s Teich PSAX 31.21 ml (test code = 5355001034) LVOT CI (test code = 3.27 l/min/m2 9903430329) LVOT CO (test code = 6.62 l/min 6671237155) LVOT HR for LVOT CO 110.63 bpm (test code = 8567884360) LVOT SI (test code = 29.59 ml/m2 6489846375) BSA Haycock (test 2.04 m2 code = 0826502519) AoV Vmn (test code = 1.04 m/s 2930717577) IVS s 2D (test code 1.93 cm = 7319687245) LV FS Teich 2D (test 30.22 code = 7907047271) LV FS Cube 2D (test 30.22 code = 1557562104) LVOT Vmn (test code 0.63 = 1790375069) Pt Size (test code = 180.34 0378989461) Pt Wt (test code = 82.10 8601645627) Aov area Vmn (test 2.45 cm2 code = 6709723730) LVOT mean grad (test 1.68 mmHg code = 8198839029) MAX Pred HR (test 159.17 code = 8958930074) 85 of MPHR (test 135.29 code = 7664143661) AoV area I VMN bsa 1.21 cm2/m2 (test code = 6871873257) Calc MPHR (test code 159.17 bpm = 0727000878) IVS pct thck PLAX 29.05 % (test code = 0166461527) LV SI Cube 2D (test 22.56 ml/m2 code = 4512024876) LV SV Cube 2D (test 45.61 ml code = 9338454776) LV vol d cube 2D 69.07 ml (test code = 7426694626) LV vol s cube 2D 23.47 ml (test code = 3479671119) LVPW pct thck PLAX 42.11 % (test code = 4918940409) LVPW s PLAX (test 2.15 cm code = 9212020309) MV Decel slope (test 6.38 m/s2 code = 5326057805) Pred Exer Dur R1 8.58 (test code = 2458224763) Pred METS R1 (test 8.88 code = 5022323881) LA Vol MOD A4C (test 71.69 ml code = 8022342584) Velocity Ratio 0.61 m/s (V1/V2) (test code = 4689) EF (test code = 58 % 2810696803) LVOT VTI (CM) (test 15.00 cm code = 7054769290) SOTO (test code = SOTO) Left Ventricle: [...] performed. Lab Interpretation Abnormal (test code = 57895-0) [facility] [id number] 02:34:00 Test Item Value Reference Range Interpretation Comments Urine culture (test SEE COMMENT Bacteriu leah screen code = 3658911) negative. [facility] [id number] 02:34:00 Test Item Value Reference Range Interpretation Comments Urine culture (test SEE COMMENT Bacteriu leah screen code = 1152053) negative. [facility] [id number] 02:34:00 Test Item Value Reference Range Interpretation Comments Urine culture (test SEE COMMENT Bacteriu leah screen code = 6928012) negative. [facility] RNA [Presence] in Respiratory specimen by LISETTE with probe [id number] 01:56:11 Test Item Value Reference Range Interpretation Comments SARS-CoV-2 (COVID-19) RNA Not detected [Presence] in Respiratory specimen by LISETTE with probe detection (test code = 50694-7) Whether patient is employed in a Unknown healthcare setting (test code = 01809-8) Whether the patient has symptoms Unknown related to condition of interest (test code = 43312-8) Whether the patient was Unknown hospitalized for condition of interest (test code = 21413-2) Whether the patient was admitted Unknown to intensive care unit (ICU) for condition of interest (test code = 90673-7) Whether patient resides in a Unknown congregate care setting (test code = 53864-8) status (test code = Unknown 73087-4) Date and time of symptom onset Unknown (test code = 82041-3) [facility]
[2023-01-16] MEDS ORDERED: NA CHLORIDE 0.9% 1,000 ML ONE (12:33)
[2023-01-16 12:44] LABS: MCV 69.5 fL (80-100); MPV 7.2 fL (7.6-11.3); RBC Red Blood Cell Count 2.73 M/uL (4.33-5.43)
[2023-01-16 12:47] LABS: Protime INR 1.19
--- NOTE | 2023-01-16 13:16 | RAD REPORT ---
[facility]47 [facility] CLINICAL HISTORY: COUGH COMPARISON: Chest Single View dated 09/25/2022; Abdomen Pelvis Wo Contrast dated 12/07/2022 TECHNIQUE: Portable AP view of the chest. FINDINGS: The lungs are clear. No pneumothorax or effusion. The cardiomediastinal contours are unre markable. Suggestion of numerous sclerotic lesions throughout the ribs, clavicles, and included aspe cts of the humerus bilaterally. IMPRESSION: No acute cardiopulmonary process. Suggestion of numerous sclerotic lesions, may be new since the prior exam, which could raise concern for metastatic disease. Please correlate clinically.
[2023-01-16 13:17] LABS: Anisocytosis 1+; Blood Morphology Comment NOTED (NOT SEEN); Hypochromasia 2+; Platelet Estimate ADEQ
[2023-01-16 13:21] LABS: ALT/SGPT 14 U/L (16-61); AST/SGOT 14 U/L (15-37); Albumin 3.4 g/dL (3.4-5.0); Alkaline Phosphatase 1654 U/L (45-117); BUN Blood Urea Nitrogen 9 mg/dL (7-18); Bicarbonate 25 mEq/L (21-32); Bilirubin Total 0.1 mg/dL (0.2-1.0); Glomerular Filtration Rate 98 ml/min (=/>90); Glucose Level 104 mg/dL (74-106); Magnesium 2.4 mg/dL (1.6-2.4); NT PRO-BNP 250 pg/mL (<125); Potassium 4.4 mEq/L (3.5-5.1); Sodium Level 139 mEq/L (136-145); Troponin High Sensitivity 4.1 pg/mL (<58.9)
[2023-01-16] MEDS ORDERED: NA CHLORIDE 0.9% 250 ML ONE (13:22)
[2023-01-16] MEDS ORDERED: ACETAMINOPHEN 325 MG TABLET ONE (13:22)
[2023-01-16] MEDS ORDERED: DIPHENHYDRAMINE 50 MG/ML VIAL ONE (13:22)
[2023-01-16 13:26] LABS: Bilirubin Direct < 0.1 mg/dL (0-0.2); Bilirubin Indirect, Calculated ND mg/dL (0.2-0.8)
--- NOTE | 2023-01-16 14:01 | EDPHYS ---
Physician Documentation [facility] Name: Amanuel Page Age: 62 yrs Sex: Male : 1960 Arrival Date: 01/16/2023 Time: 11:53 Bed 20 Private MD: ED Physician Shiva Ball HPI: 01/16 13:01 This 62 yrs old Male presents to ER via Ambulatory with complaints of francheska Tranfusion. 13:01 The patient presents to the emergency department with rectal bleeding, bright red blood francheska with bowel movement, in toilet bowl, with multiple such episodes. Onset: The symptoms/episode began/occurred 3 month(s) ago. Abdominal pain: none is appreciated. Modifying factors: The symptoms are alleviated by nothing, the symptoms are aggravated by nothing. long standing hemorrhoids. Associated signs and symptoms: Pertinent positives: no weakness, no dizziness, [facility]. Historical: - Allergies: 12:15 Iodine; iw - PMHx: 12:15 Anemia; Bladder mass; prostate cancer; mets to bone; iw - Social history:: Smoking status: Patient reports the use of cigarette tobacco products, smokes one pack cigarettes per day. - Family history:: not pertinent. ROS: 13:01 Constitutional: Negative for fever, chills, and weight loss, Eyes: Negative for injury, francheska pain, redness, and discharge, ENT: Negative for injury, pain, and discharge, Neck: Negative for injury, pain, and swelling, Cardiovascular: Negative for chest pain, palpitations, and edema, Respiratory: Negative for shortness of breath, cough, wheezing, and pleuritic chest pain, Back: Negative for injury and pain, : Negative for injury, bleeding, discharge, and swelling, MS/Extremity: Negative for injury and deformity, Neuro: Negative for headache, weakness, numbness, tingling, and seizure, Psych: Negative for depression, anxiety, suicide ideation, homicidal ideation, and hallucinations, Allergy/Immunology: Negative for hives, rash, and allergies, Endocrine: Negative for neck swelling, polydipsia, polyuria, polyphagia, and marked weight changes, Hematologic/Lymphatic: Negative for swollen nodes, abnormal bleeding, and unusual bruising. 13:01 Abdomen/GI: Positive for rectal bleeding. 13:01 Skin: Positive for pallor. Exam: 13:01 Constitutional: This is a well developed, well nourished patient who is awake, alert, francheska and in no acute distress. Head/Face: Normocephalic, atraumatic. Eyes: Pupils equal round and reactive to light, extra-ocular motions intact. Lids and lashes normal. Conjunctiva and sclera are non-icteric and not injected. Cornea within normal limits. Periorbital areas with no swelling, redness, or edema. ENT: Nares patent. No nasal discharge, no septal abnormalities noted. Tympanic membranes are normal and external auditory canals are clear. Oropharynx with no redness, swelling, or masses, exudates, or evidence of obstruction, uvula midline. Mucous membranes moist. Neck: Trachea midline, no thyromegaly or masses palpated, and no cervical lymphadenopathy. Supple, full range of motion without nuchal rigidity, or vertebral point tenderness. No Meningismus. Chest/axilla: Normal chest wall appearance and motion. Nontender with no deformity. No lesions are appreciated. Cardiovascular: Regular rate and rhythm with a normal S1 and S2. No gallops, murmurs, or rubs. Normal PMI, no JVD. No pulse deficits. Respiratory: Lungs have equal breath sounds bilaterally, clear to auscultation and percussion. No rales, rhonchi or wheezes noted. No increased work of breathing, no retractions or nasal flaring. Back: No spinal tenderness. No costovertebral tenderness. Full range of motion. Male : Normal genitalia with no discharge or lesions. MS/ Extremity: Pulses equal, no cyanosis. Neurovascular intact. Full, normal range of motion. Neuro: Awake and alert, GCS 15, oriented to person, place, time, and situation. Cranial nerves II-XII grossly intact. Motor strength 5/5 in all extremities. Sensory grossly intact. Cerebellar exam normal. Normal gait. Psych: Awake, alert, with orientation to person, place and time. Behavior, mood, and affect are within normal limits. 13:01 Abdomen/GI: Inspection: abdomen appears normal, Bowel sounds: normal, Palpation: abdomen is soft and non-tender, Rectal exam: the exam is deferred, because of patient request, Liver: no appreciated palpable abnormalities, Hernia: not appreciated. 13:01 Skin: Appearance: Color: pale, Temperature: normal temperature, Moisture: normal moisture, petechiae, not noted, ecchymosis, not noted, flushing, not noted, diaphoresis is not appreciated, abscess, not appreciated, cellulitis, is not appreciated, induration, is not appreciated, Turgor: is excellent. Vital Signs: 12:07 BP 122 / 79; Pulse 84; Resp 14; Temp 98.3(O); Pulse Ox 100% ; vg1 13:06 BP 114 / 70; Pulse 72; Resp 16; Pulse Ox 100% on R/A; vg1 14:10 BP 122 / 73; Pulse 66; Resp 15; Temp 97.5; Pulse Ox 100% on R/A; mb9 14:15 BP 124 / 79; Pulse 66; Resp 18; Temp 97.4; Pulse Ox 100% on R/A; mb9 14:20 BP 126 / 78; Pulse 67; Resp 17; Temp 97.7; Pulse Ox 99% on R/A; mb9 14:25 BP 123 / 74; Pulse 69; Resp 16; Temp 97.7; Pulse Ox 100% on R/A; mb9 15:40 BP 119 / 81; Pulse 68; Resp 16; Temp 97.3; Pulse Ox 100% on R/A; mb9 15:45 BP 123 / 65; Pulse 65; Resp 16; Temp 97.5; Pulse Ox 100% on R/A; mb9 15:50 BP 114 / 69; Pulse 70; Resp 18; Temp 97.5; Pulse Ox 100% on R/A; mb9 15:55 BP 113 / 66; Pulse 74; Resp 18; Temp 97.3; Pulse Ox 100% on R/A; mb9 17:05 BP 134 / 69; Pulse 71; Resp 18; Pulse Ox 100% on R/A; mb9 14:10 Baselione for 1st unit of RBCs administration mb9 15:40 baseline for 2nd administration of RBCs mb9 MDM: 11:59 Patient medically screened. francheska 13:04 Differential diagnosis: diverticulitis, hemorrhoids, hemorrhagic shock. Differential francheska Diagnosis altered mental status, sepsis. Data reviewed: vital signs, nurses notes, lab test result(s), EKG, radiologic studies, plain films. Consideration of Admission/Observation Escalation of care including admission/observation considered. I considered the following discharge prescriptions or medication management in the emergency department Medications were administered in the Emergency Department. See MAR. Independent interpretation of the following test(s) in the Emergency Department EKG: See my EKG interpretation above. Test considered but Not performed: CT: NO CT ABD/PELVIS. Care significantly affected by the following chronic conditions: ANEMIA, BLADDER MASS, PROSTRATE CANCER. Counseling: I had a detailed discussion with the patient and/or guardian regarding: the historical points, exam findings, and any diagnostic results supporting the discharge/admit diagnosis, lab results, radiology results, the need for outpatient follow up, for definitive care, a hot top liner, an infectious disease specialist. 01/16 12:16 Order name: Basic Metabolic Panel; Complete Time: 13:28 [facility] 01/16 12:16 Order name: CBC with Diff; Complete Time: 13:28 [facility] 01/16 12:16 Order name: LFT's; Complete Time: 13:28 [facility] 01/16 12:16 Order name: Magnesium; Complete Time: 13:28 [facility] 01/16 12:16 Order name: NT PRO-BNP; Complete Time: 13:28 [facility] 01/16 12:16 Order name: PT-INR; Complete Time: 12:55 [facility] 01/16 12:16 Order name: Troponin HS; Complete Time: 13:28 [facility] 01/16 12:16 Order name: Type And Screen [facility] 01/16 12:41 Order name: Bb Add On 1 01/16 12:47 Order name: Packed RBC Leukored [facility] 01/16 12:59 Order name: Manual Differential; Complete Time: 13:28 [facility] 01/16 12:16 Order name: XRAY Chest (1 view); Complete Time: 13:28 [facility] 01/16 12:16 Order name: EKG; Complete Time: 12:17 [facility] 01/16 12:16 Order name: Cardiac monitoring; Complete Time: 12:38 [facility] 01/16 12:16 Order name: EKG - Nurse/Tech; Complete Time: 12:38 [facility] 01/16 12:16 Order name: IV Saline Lock; Complete Time: 12:38 [facility] 01/16 12:16 Order name: Labs collected and sent; Complete Time: 12:38 [facility] 01/16 12:16 Order name: O2 Per Protocol; Complete Time: 12:21 [facility] 01/16 12:16 Order name: O2 Sat Monitoring; Complete Time: 12:21 [facility] 01/16 12:58 Order name: Transfuse; Complete Time: 14:50 [place]ka Administered Medications: 12:38 Drug: NS 0.9% IV 1000 ml Route: IV; Rate: 125 ml/hr; Site: right antecubital; vg1 17:01 Follow up: Response: No adverse reaction; IV Status: Completed infusion mb9 Disposition Summary: 01/16/23 14:00 Discharge Ordered Location: Home fr[place] Problem: new francheska Symptoms: have improved francheska Condition: Fair francheska Diagnosis - Anemia, unspecified [place] - Anemia in chronic kidney disease francheska - Other hemorrhoids fr[place] - GI Bleed/ Gastrointestinal hemorrhage, unspecified - LOWER, HEMORRHOIDAL fr[place]ka - Tobacco abuse counseling francheska - Tobacco use francheska Followup: francheska - With: Private Physician - When: 2 - 3 days - Reason: Recheck today's complaints, Continuance of care, Re-evaluation by your physician Followup: fr[place]ka - With: - When: 2 - 3 days - Reason: Recheck today's complaints, Re-evaluation by your physician Discharge Instructions: - Discharge Summary Sheet francheska - Iron Deficiency Anemia, Adult francheska - Anemia fr[place]ka - Blood Transfusion, Adult francheska - Iron-Rich Diet francheska - Gastrointestinal Bleeding francheska - Hemorrhoids fr[place]ka - Rectal Bleeding fr[place]ka - How to Take a Sitz Bath fr[place] - Blood Transfusion, Adult, Syox-nc-Uaan fr[place]ka - Hemorrhoids, Tywk-og-Mkkx fr[place]ka - Gastrointestinal Bleeding, Fiel-tv-Ljlh fr[place] - Iron Deficiency Anemia, Adult, Pgce-uj-Zcrh [place] - Rectal Bleeding, Jzqp-rm-Dlrz [place] - Blood Transfusion, Adult, Care After francheska - Lower Gastrointestinal Bleeding [facility] Forms: - Medication Reconciliation Form fr[place]ka - Thank You Letter francheska - Antibiotic Education fr[place]ka - Prescription Opioid Use francheska - Patient Portal Instructions [facility] Prescriptions: - Ferrous Sulfate 325 mg (65 mg Iron) Oral Tablet - take 1 tablet by ORAL route every 8 hours; 90 tablet; Refills: 0, Product [facility] Selection Permitted - Pepcid 20 mg Oral Tablet - take 1 tablet by ORAL route every 12 hours for 30 days; 60 tablet; Refills: 0, [facility] Product Selection Permitted Signatures: Dispatcher [employer] Shiva Dejesus MD MD cha Williams, Irene RN Brianna Romo RN RN vg1 Katy Romero RN mb9
--- NOTE | 2023-01-16 14:01 | ER ---
Nurse's Notes [facility] Name: Amanuel Page Age: 62 yrs Sex: Male : 1960 Arrival Date: 01/16/2023 Time: 11:53 Bed 20 Private MD: Diagnosis: Anemia, unspecified;Anemia in chronic kidney disease;Other hemorrhoids;GI Bleed/ Gastrointestinal hemorrhage, unspecified-LOWER, HEMORRHOIDAL;Tobacco abuse counseling;Tobacco use Presentation: 01/16 12:14 Chief complaint: Patient states: had labs drawn the day before yesterday and Hgb was iw 5.6 , has bleeding from a hemorrhoid that's been intermittent for past two months, is due for a colonoscopy but needs blood transfusion first. Coronavirus screen: At this time, the client does not indicate any symptoms associated with coronavirus-19. Ebola Screen: Patient negative for fever greater than or equal to 101.5 degrees Fahrenheit, and additional compatible Ebola Virus Disease symptoms Patient denies exposure to infectious person. Patient denies travel to an Ebola-affected area in the 21 days before illness onset. No symptoms or risks identified at this time. Initial Sepsis Screen: Does the patient meet any 2 criteria? No. Patient's initial sepsis screen is negative. Does the patient have a suspected source of infection? No. Patient's initial sepsis screen is negative. Risk Assessment: Do you want to hurt yourself or someone else? Patient reports no desire to harm self or others. Onset of symptoms was January 16, 2023. 12:14 Method Of Arrival: Ambulatory iw 12:14 Acuity: ANA 3 iw Historical: - Allergies: 12:15 Iodine; iw - PMHx: 12:15 Anemia; Bladder mass; prostate cancer; mets to bone; iw - Social history:: Smoking status: Patient reports the use of cigarette tobacco products, smokes one pack cigarettes per day. - Family history:: not pertinent. Screenin:08 [facility] ED Fall Risk Assessment (Adult) History of falling in the last 3 months, vg1 including since admission No falls in past 3 months (0 pts). Abuse screen: Denies threats or abuse. Denies injuries from another. Nutritional screening: No deficits noted. Tuberculosis screening: No symptoms or risk factors identified. Assessment: 12:08 General: Appears in no apparent distress. comfortable, Behavior is calm, cooperative. vg1 Pain: Denies pain. Neuro: Level of Consciousness is awake, alert, obeys commands, Oriented to person, place, time, situation, Denies weakness dizziness. Cardiovascular: Denies chest pain, shortness of breath, syncope, Capillary refill is > 3 seconds. Respiratory: Airway is patent Respiratory effort is even, unlabored. GI: Abdomen is flat, Abd is soft and non tender X 4 quads. : No signs and/or symptoms were reported regarding the genitourinary system. EENT: No signs and/or symptoms were reported regarding the EENT system. Derm: Skin is pale. Musculoskeletal: Circulation, motion, and sensation intact. 13:06 Reassessment: Patient appears in no apparent distress at this time. No changes from vg1 previously documented assessment. Patient and/or family updated on plan of care and expected duration. Pain level reassessed. Patient is alert, oriented x 3, equal unlabored respirations, skin warm/dry/pink. 13:45 Reassessment: pt has been pretreated with written order by Dr Ball of Tylenol 650 vg1 mg PO x1 and Benadryl 12.5 mg IVP x1. 14:10 Reassessment: 1st unit of RBCs initiated. See blood administration form for more mb9 information. 14:25 Reassessment: Patient and/or family updated on plan of care and expected duration. Pain mb9 level reassessed. Patient is alert, oriented x 3, equal unlabored respirations, skin warm/dry/pink. Patient states feeling better. Patient states symptoms have improved. 14:26 Reassessment: Discharge pending administration of 2 units of RBC. mb9 15:40 Reassessment: 2nd unit of RBCs initiated. mb9 16:58 Reassessment: Patient and/or family updated on plan of care and expected duration. Pain mb9 level reassessed. Patient is alert, oriented x 3, equal unlabored respirations, skin warm/dry/pink. Patient states feeling better. Patient states symptoms have improved. Vital Signs: 12:07 BP 122 / 79; Pulse 84; Resp 14; Temp 98.3(O); Pulse Ox 100% ; vg1 13:06 BP 114 / 70; Pulse 72; Resp 16; Pulse Ox 100% on R/A; vg1 14:10 BP 122 / 73; Pulse 66; Resp 15; Temp 97.5; Pulse Ox 100% on R/A; mb9 14:15 BP 124 / 79; Pulse 66; Resp 18; Temp 97.4; Pulse Ox 100% on R/A; mb9 14:20 BP 126 / 78; Pulse 67; Resp 17; Temp 97.7; Pulse Ox 99% on R/A; mb9 14:25 BP 123 / 74; Pulse 69; Resp 16; Temp 97.7; Pulse Ox 100% on R/A; mb9 15:40 BP 119 / 81; Pulse 68; Resp 16; Temp 97.3; Pulse Ox 100% on R/A; mb9 15:45 BP 123 / 65; Pulse 65; Resp 16; Temp 97.5; Pulse Ox 100% on R/A; mb9 15:50 BP 114 / 69; Pulse 70; Resp 18; Temp 97.5; Pulse Ox 100% on R/A; mb9 15:55 BP 113 / 66; Pulse 74; Resp 18; Temp 97.3; Pulse Ox 100% on R/A; mb9 17:05 BP 134 / 69; Pulse 71; Resp 18; Pulse Ox 100% on R/A; mb9 14:10 Baselione for 1st unit of RBCs administration mb9 15:40 baseline for 2nd administration of RBCs mb9 ED Course: 11:56 Patient arrived in ED. ts1 11:57 Shiva Ball MD is Attending Physician. francheska 11:58 Brianna Calero RN is Primary Nurse. vg1 12:08 Patient has correct armband on for positive identification. Placed in gown. Bed in low vg1 position. Call light in reach. Side rails up X2. Client placed on continuous cardiac and pulse oximetry monitoring. NIBP monitoring applied. 12:08 Arm band placed on. vg1 12:15 Triage completed. iw 12:38 Initial lab(s) drawn, by me, sent to lab. Inserted saline lock: 20 gauge in right vg1 antecubital area, using aseptic technique. Blood collected. 12:49 XRAY Chest (1 view) In Process Unspecified. EDMS 13:15 Provided Education on: Blood Transfusion, Procedure Consent. vg1 13:51 Inserted saline lock: 22 gauge in left forearm, using aseptic technique. vg1 13:55 Report given to Katy Dominguez RN. vg1 13:58 Bb Add On Sent. mb9 14:00 Piter Chandra MD is Referral Physician. francheska 14:50 Katy Romero, RN is Primary Nurse. mb9 17:19 No provider procedures requiring assistance completed. IV discontinued, intact, mb9 bleeding controlled, No redness/swelling at site. Pressure dressing applied. Administered Medications: 12:38 Drug: NS 0.9% IV 1000 ml Route: IV; Rate: 125 ml/hr; Site: right antecubital; vg1 17:01 Follow up: Response: No adverse reaction; IV Status: Completed infusion mb9 Medication: 12:08 VIS not applicable for this client. vg1 Outcome: 14:00 Discharge ordered by . [facility] 17:19 Discharged to home ambulatory. mb9 17:19 Condition: stable 17:19 Discharge instructions given to patient, Instructed on discharge instructions, follow up and referral plans. Demonstrated understanding of instructions, follow-up care, medications, Prescriptions given X 2. 17:19 Patient left the ED. mb9 Signatures: Dispatcher [employer] EDMS Shiva Ball MD MD cha Williams, Irene, RN Brianna Romo RN RN vg1 Katy Romero, TRISTIAN RN mb9 Elodia Artis PAS PAS ts1 Corrections: (The following items were deleted from the chart) 17:11 17:01 BP 134 / 69; Pulse 71bpm; Resp 18bpm; Pulse Ox 100% RA; mb9 mb9
[2023-01-16 18:03] VITALS: O2SAT 100
[2023-01-16 18:10] VITALS: TEMP 97.3
[2023-01-16 18:13] VITALS: BP 134/69
--- NOTE | 2023-01-17 11:45 | EKG ---
Test Date: 2023-01-16 Test Time: 12:31:03 Spray Booth Operator: BASIM MEASUREMENT RESULTS: Intervals: Rate: 72 W[place]: 150 QRSD: 88 QT: 390 QTc: 427 [place]: P: 55 W[place]: 150 QRS: 76 T: 95 INTERPRETIVE STATEMENTS: Normal sinus rhythm Nonspecific ST abnormality Abnormal ECG Compared to ECG 09/25/2022 13:42:03 ST (T wave) deviation now present Electronically Signed On 01-17-23 11:43:48 CDT by Vernon Trevino
== END 2023-01-16 17:19 | disposition home or self-care (01) ==
LOC: ER 11:53
PROC: 30233N1 Transfusion of Nonautologous Red Blood Cells into Peripheral Vein, Percutaneous Approach (ICD-10-PCS; principal; 2023-01-16)
DX: N18.9 Chronic kidney disease, unspecified (principal); D63.1 Anemia in chronic kidney disease; K64.8 Other hemorrhoids; Z72.0 Tobacco use; Z71.6 Tobacco abuse counseling; Z91.048 Other nonmedicinal substance allergy status; Z85.46 Personal history of malignant neoplasm of prostate; Z85.830 Personal history of malignant neoplasm of bone
CPT/HCPCS: 96361; 93005; 85025; 80048; 36415; 86900; 83735; 86850; 85610; 86901; 80076; 86920 ×2; 84484; 83880; 71045; 96360; 99284; 36430; J1200; P9016 ×2; J7050; J7030

== ENCOUNTER → 2023-07-23 | Emergency (ER) | payer OTHER ==
[~2023-07-23] MED LIST: NA CHLORIDE 0.9% 1,000 ML ONE; NA CHLORIDE 0.9% 250 ML ONE; dilTIAZem HCL 25 MG/5 ML VIAL IV ONE
[2023-07-23 10:28] LABS: Absolute Lymphocytes (CBC) 1.2 K/uL (0.7-4.9); Hematocrit 21.8 % (39.6-49.0); Lymphocytes % 15.9 % (15.3-44.8); MCV 69.1 fL (80-100); MPV 7.9 fL (7.6-11.3); Platelets 317 thou/uL (152-406); RBC Red Blood Cell Count 3.15 M/uL (4.33-5.43)
[2023-07-23 10:41] LABS: Albumin 3.3 g/dL (3.4-5.0); Bilirubin Total 0.2 mg/dL (0.2-1.0); Potassium 3.7 mEq/L (3.5-5.1); Protein, Total 6.7 g/dL (6.4-8.2); Troponin High Sensitivity 11.8 pg/mL (<58.9)
[2023-07-23 11:15] LABS: Blood Morphology Comment NOTED (NOT SEEN); Platelet Estimate ADEQ; White Blood Cell Scan OK (OK)
[2023-07-23 11:16] LABS: Anisocytosis 1+; Hypochromasia 2+
--- NOTE | 2023-07-23 12:16 | RAD REPORT ---
[facility] DES[facility] 11:11 am CLINICAL HISTORY: SOB COMPARISON: Chest Single View dated 01/16/2023; Chest Single View dated 09/25/2022 TECHNIQUE: Portable AP view of the chest. FINDINGS: Mild patchy bibasilar airspace opacities. Decreased inspiratory effort limits evaluation. No pneumothorax or effusion. The cardiomediastinal contours are unremarkable. IMPRESSION: Mild patchy bibasilar airspace opacities, may reflect atelectasis or pneumonia.
--- NOTE | 2023-07-23 15:15 | ER ---
Nurse's Notes [facility] Name: Amanuel Page Age: 63 yrs Sex: Male : 1960 Arrival Date: 07/23/2023 Time: 09:50 Bed 6 Private MD: Diagnosis: Paroxysmal atrial fibrillation;Anemia, unspecified Presentation: 07/23 10:00 Chief complaint: Patient states: "I know my hemoglobin is low and I was recently aa5 constipated about a month ago; I also have a bladder mass and the pressure causes bleeding of my hemorrhoids". Pt currently denies bleeding to hemorrhoids. Coronavirus screen: At this time, the client does not indicate any symptoms associated with coronavirus-19. Ebola Screen: Patient denies travel to an Ebola-affected area in the 21 days before illness onset. Initial Sepsis Screen: Does the patient meet any 2 criteria? HR > 90 bpm. Does the patient have a suspected source of infection? No. Patient's initial sepsis screen is negative. Risk Assessment: Do you want to hurt yourself or someone else? Patient reports no desire to harm self or others. Onset of symptoms was July 23, 2023. 10:00 Acuity: ANA 3 aa5 10:00 Method Of Arrival: Ambulatory aa5 Historical: - Allergies: 10:01 Iodine; ld1 - PMHx: 10:01 Anemia; Bladder mass; Prostate Cancer; mets to bone; ld1 10:27 Atrial fibrillation; aa5 Screenin:07 [facility] ED Fall Risk Assessment (Adult) History of falling in the last 3 months, aa5 including since admission No falls in past 3 months (0 pts) Confusion or Disorientation No (0 pts) Intoxicated or Sedated No (0 pts) Impaired Gait No (0 pts) Mobility Assist Device Used No (0 pt) Altered Elimination No (0 pt) Score/Fall Risk Level 0 - 2 = Low Risk Oriented to surroundings, Maintained a safe environment, Educated pt \\T\\ family on fall prevention, incl call for assistance when getting out of bed. Abuse screen: Denies threats or abuse. Nutritional screening: No deficits noted. Tuberculosis screening: No symptoms or risk factors identified. Assessment: 10:00 General: Appears comfortable, Behavior is calm, cooperative. Pain: Denies pain. Neuro: aa5 Level of Consciousness is awake, alert, obeys commands, Oriented to person, place, time, situation. Cardiovascular: Heart tones S1 S2 present Patient's skin is warm and dry. Rhythm is regular. Respiratory: Reports shortness of breath on exertion Airway is patent Respiratory effort is even, unlabored, Respiratory pattern is regular, symmetrical. GI: Abdomen is round non-distended, Bowel sounds present X 4 quads. Abd is soft and non tender X 4 quads. Reports bleeding hemorrhoids that has resolved. : No signs and/or symptoms were reported regarding the genitourinary system. EENT: No signs and/or symptoms were reported regarding the EENT system. Derm: Skin is dry, Skin is pale, Skin temperature is warm. Musculoskeletal: Range of motion: intact in all extremities. 10:26 Reassessment: More warm blankets provided to pt for comfort. Pt currently resting in aa5 bed with eyes closed. . 10:53 Reassessment: RBC consent obtained (see paper chart).. aa5 11:45 Reassessment: Diltiazem on hold due to lower BP readings, MD aware. . aa5 12:39 Reassessment: RBC unit #1 started at 50cc/hr at 1224. No s/s of transfusion reaction aa5 noted, infusion currently infusing at 150mls/hr. . 12:39 Reassessment: See blood transfusion record for more information and VS. . aa5 13:54 Reassessment: Patient is alert, oriented x 3, equal unlabored respirations, skin aa5 warm/dry/pink. Patient states feeling better. 14:00 Reassessment: MD states to administer diltiazem at this time. . aa5 14:36 Reassessment: RBC unit # 1 completed (see blood transfusion record). MD notified. . aa5 14:36 Reassessment: Patient is alert, oriented x 3, equal unlabored respirations, skin aa5 warm/dry/pink. 15:25 Reassessment: Patient is alert, oriented x 3, equal unlabored respirations, skin aa5 warm/dry/pink. Vital Signs: 10:00 BP 102 / 83; Pulse 117; Resp 19 S; Temp 97.7(TE); Pulse Ox 100% on R/A; Weight 82.55 kg aa5 (R); Height 6 ft. 1 in. (R); 10:11 BP 99 / 87; Pulse 110; Resp 16 S; Pulse Ox 100% on R/A; aa5 11:00 BP 118 / 89; Pulse 124; Resp 16 S; Pulse Ox 100% on R/A; aa5 11:45 BP 100 / 78; Pulse 127; Resp 17 S; Pulse Ox 100% on R/A; aa5 12:25 BP 93 / 78; Pulse 122; Resp 18; Pulse Ox 100% on R/A; ld1 12:45 BP 98 / 81; Pulse 133; Resp 20 S; Pulse Ox 100% on R/A; aa5 13:54 BP 120 / 91; Pulse 124; Resp 19 S; Temp 97.5(TE); Pulse Ox 100% on R/A; aa5 14:10 BP 116 / 72; Pulse 115; Resp 16 S; Pulse Ox 100% on R/A; aa5 14:36 BP 101 / 80; Pulse 121; Resp 18; Temp 97.8(TE); Pulse Ox 100% on R/A; aa5 14:45 BP 112 / 75; Pulse 101; Resp 16 S; Pulse Ox 100% on R/A; aa5 14:53 BP 113 / 77; Pulse 92; ec2 14:55 BP 113 / 77; Pulse 95; Resp 16 S; Pulse Ox 99% on R/A; aa5 15:10 BP 117 / 81; Pulse 98; Resp 18; Pulse Ox 100% on R/A; ld1 10:00 Body Mass Index 24.01 (82.55 kg, 185.42 cm) aa5 ED Course: 09:55 Patient arrived in ED. mg5 09:58 David Ojeda MD is Attending Physician. ec2 10:00 Daxa Bush, TRISTIAN is Primary Nurse. aa5 10:00 Arm band placed on. aa5 10:00 Patient has correct armband on for positive identification. Bed in low position. Call aa5 light in reach. Side rails up X 1. 10:01 Triage completed. aa5 10:08 No provider procedures requiring assistance completed. aa5 10:09 Inserted saline lock: 20 gauge in right antecubital area, using aseptic technique. ld1 Blood collected. 10:17 Type And Screen Sent. ld1 10:17 Troponin HS Sent. ld1 10:17 CMP Sent. ld1 10:17 CBC with Diff Sent. ld1 10:58 Type And Screen Sent. ld1 11:13 CXR XRAY In Process Unspecified. EDMS 15:25 IV discontinued, intact, bleeding controlled, No redness/swelling at site. Pressure aa5 dressing applied. Administered Medications: 10:17 Drug: NS 0.9% IV 1000 ml IV at 1 bolus Per protocol; 1000 mL bolus Route: IV; Rate: 1 ld1 bolus; Site: right antecubital; 11:00 Follow up: IV Status: Completed infusion; IV Intake: 1000ml aa5 14:05 Drug: Diltiazem IVP 10 mg IVP once; Over 2 minutes Route: IVP; Site: right antecubital; aa5 14:25 Follow up: Response: No adverse reaction; No change in condition aa5 14:35 Drug: Diltiazem IVP 25 mg IVP once; Over 2 Minutes Route: IVP; Site: right antecubital; aa5 14:45 Follow up: Response: No adverse reaction; No adverse reaction, HR has improved aa5 Medication: 10:07 VIS not applicable for this client. aa5 Intake: 11:00 IV: 1000ml; Total: 1000ml. aa5 Outcome: 15:15 Discharge ordered by . ec2 15:25 Discharged to home ambulatory, with family, aa5 15:25 Condition: improved 15:25 Discharge instructions given to patient, Instructed on discharge instructions, follow up and referral plans. Demonstrated understanding of instructions, follow-up care, 15:28 Patient left the ED. ec2 Signatures: Dispatcher [employer] Daxa Bravo RN RN aa5 Michelle Diego RN RN 1 Christina Cardozo mg5 David Ojeda MD MD ec2 Corrections: (The following items were deleted from the chart) 10:10 10:00 Initial Sepsis Screen: Does the patient meet any 2 criteria? No. Patient's aa5 initial sepsis screen is negative. Does the patient have a suspected source of infection? No. Patient's initial sepsis screen is negative. aa5 10:28 10:00 Chief complaint: Patient states: "I know my hemoglobin is low and I was recently aa5 constipated and the pressure causes bleeding of my hemorrhoids". Pt currently denies bleeding to hemorrhoids. aa5 15:00 14:36 BP 101 / 80; Pulse 111bpm; Resp 18bpm; Pulse Ox 100% RA; Temp 97.8F Temporal; aa5 aa5 15:26 12:20 Reassessment: RBC consent obtained (see paper chart).. aa5 aa5
--- NOTE | 2023-07-23 15:15 | EDPHYS ---
Physician Documentation [facility] Name: Amanuel Page Age: 63 yrs Sex: Male : 1960 Arrival Date: 07/23/2023 Time: 09:50 Bed 6 Private MD: ED Physician David Ojeda HPI: 07/23 10:10 This 63 yrs old Male presents to ER via Ambulatory with complaints of Anemia ec2 and hemorrhoids. 10:10 Patient arrives today for evaluation and concern of anemia. Patient with history of ec2 anemia, previously requiring transfusions. States that he has a history of metastatic prostate cancer. Patient reports some general shortness of breath and general weakness. Patient reports that he has some hemorrhoids that occasionally bleed however has not noted significant bleeding.. Historical: - Allergies: 10:01 Iodine; ld1 - PMHx: 10:01 Anemia; Bladder mass; Prostate Cancer; mets to bone; ld1 10:27 Atrial fibrillation; aa5 ROS: 10:10 Constitutional: as per hpi ec2 Exam: 10:10 Constitutional: GEN: NAD Head: atraumatic Eyes: EOMI Ears: External ears are ec2 normal. CV: tachycardia LUNGS: no respiratory distress ABD: non-distended. : Performed under nursing supervision, Michelle RN, soft nonthrombosed hemorrhoids that are nontender, no active bleeding, no melena on EMMANUEL. SKIN: no evidence of rashes MSK: no evidence of trauma NEURO: moves all extremities equally Vital Signs: 10:00 BP 102 / 83; Pulse 117; Resp 19 S; Temp 97.7(TE); Pulse Ox 100% on R/A; Weight 82.55 kg aa5 (R); Height 6 ft. 1 in. (R); 10:11 BP 99 / 87; Pulse 110; Resp 16 S; Pulse Ox 100% on R/A; aa5 11:00 BP 118 / 89; Pulse 124; Resp 16 S; Pulse Ox 100% on R/A; aa5 11:45 BP 100 / 78; Pulse 127; Resp 17 S; Pulse Ox 100% on R/A; aa5 12:25 BP 93 / 78; Pulse 122; Resp 18; Pulse Ox 100% on R/A; ld1 12:45 BP 98 / 81; Pulse 133; Resp 20 S; Pulse Ox 100% on R/A; aa5 13:54 BP 120 / 91; Pulse 124; Resp 19 S; Temp 97.5(TE); Pulse Ox 100% on R/A; aa5 14:10 BP 116 / 72; Pulse 115; Resp 16 S; Pulse Ox 100% on R/A; aa5 14:36 BP 101 / 80; Pulse 121; Resp 18; Temp 97.8(TE); Pulse Ox 100% on R/A; aa5 14:45 BP 112 / 75; Pulse 101; Resp 16 S; Pulse Ox 100% on R/A; aa5 14:53 BP 113 / 77; Pulse 92; ec2 14:55 BP 113 / 77; Pulse 95; Resp 16 S; Pulse Ox 99% on R/A; aa5 15:10 BP 117 / 81; Pulse 98; Resp 18; Pulse Ox 100% on R/A; ld1 10:00 Body Mass Index 24.01 (82.55 kg, 185.42 cm) aa5 MDM: 10:03 Patient medically screened. ec2 10:10 Data reviewed: vital signs. ED course: Patient arrives today for shortness of breath ec2 and lightheadedness. Examination remarkable for rectal findings as noted above. Does have some tachycardia noted. Will obtain lab work, EKG, chest x-ray. Currently considering anemia, electrolyte disturbances, dehydration. . 10:34 ED course: Hemoglobin is 6.9, will order a unit of blood for transfusion. Patient with ec2 no evidence of active bleeding. EKG obtained, independently reviewed and interpreted by me, shows atrial fibrillation, rate 115, no acute ST segment elevations, nonconcerning intervals.. 11:19 ED course: CBC shows anemia with a hemoglobin of 6.9, reassuring metabolic profile, ec2 troponin within normal ranges. Pending transfusion. . 12:19 ED course: Chest x-ray shows bibasilar opacities, favored to be atelectasis. . ec2 14:50 ED course: Patient noted to be in A-fib with RVR, rates as high as 140s, given ec2 initially 10 mg of diltiazem with minimal improvement, repeat bolus at higher dose of 25 mg with improvement in heart rates in the 90s to low 100s. Will continue to monitor.. 15:15 ED course: On reassessment patient remains with heart rates in the 90s. Will discharge ec2 home. Patient states he has a known history of atrial fibrillation. Return precautions given.. 07/23 10:09 Order name: CBC with Diff; Complete Time: 11:19 ec2 07/23 10:09 Order name: CMP; Complete Time: 11:19 ec2 07/23 10:09 Order name: Troponin HS; Complete Time: 11:19 ec2 07/23 10:09 Order name: Type And Screen ec2 07/23 11:16 Order name: CBC Smear Scan; Complete Time: 11:19 EDMS 07/23 11:23 Order name: Packed RBC Leukored EDMS 07/23 10:09 Order name: CXR XRAY; Complete Time: 12:19 ec2 07/23 10:09 Order name: EKG; Complete Time: 10:10 ec2 07/23 10:09 Order name: EKG - Nurse/Tech; Complete Time: 10:17 ec2 07/23 10:34 Order name: Consent for Blood Transfusion; Complete Time: 11:03 ec2 07/23 10:34 Order name: IV Saline Lock; Complete Time: 10:35 ec2 Administered Medications: 10:17 Drug: NS 0.9% IV 1000 ml IV at 1 bolus Per protocol; 1000 mL bolus Route: IV; Rate: 1 ld1 bolus; Site: right antecubital; 11:00 Follow up: IV Status: Completed infusion; IV Intake: 1000ml aa5 14:05 Drug: Diltiazem IVP 10 mg IVP once; Over 2 minutes Route: IVP; Site: right antecubital; aa5 14:25 Follow up: Response: No adverse reaction; No change in condition aa5 14:35 Drug: Diltiazem IVP 25 mg IVP once; Over 2 Minutes Route: IVP; Site: right antecubital; aa5 14:45 Follow up: Response: No adverse reaction; No adverse reaction, HR has improved aa5 Disposition Summary: 07/23/23 15:15 Discharge Ordered Notes: Location: Home ec2 Condition: Stable ec2 Diagnosis - Paroxysmal atrial fibrillation ec2 - Anemia, unspecified ec2 Followup: ec2 - With: Private Physician - When: - Reason: Recheck today's complaints Discharge Instructions: - Discharge Summary Sheet ec2 - Atrial Fibrillation ec2 - Blood Transfusion, Adult ec2 Forms: - Medication Reconciliation Form ec2 - Thank You Letter ec2 - Antibiotic Education ec2 - Prescription Opioid Use ec2 - Patient Portal Instructions ec2 - Leadership Thank You Letter ec2 Critical care time excluding procedures: 12:56 Critical care time: Bedside Care: 30 minutes, Consultation: 4 minutes. Total time: 34 ec2 minutes Signatures: Dispatcher [employer] Daxa Bravo RN RN aa5 Michelle Diego RN RN ld1 David Ojeda MD MD ec2 Corrections: (The following items were deleted from the chart) 10:12 10:10 Constitutional: GEN: NAD Head: atraumatic Eyes: EOMI Ears: External ears are ec2 normal. CV: regular rate LUNGS: no respiratory distress ABD: non-distended. : Performed under nursing supervision, TRISTIAN Martinez, soft nonthrombosed hemorrhoids that are nontender, no active bleeding, no melena on EMMANUEL. SKIN: no evidence of rashes MSK: no evidence of trauma NEURO: moves all extremities equally ec2 11:21 10:34 PACKED RBC LEUKORED+BB.LAB.BRZ ordered. EDMS EDMS 11:21 10:36 ABO/RH typing ordered. EDMS EDMS 11:21 10:36 Antibody Screen ordered. EDMS EDMS
[2023-07-23 18:31] VITALS: TEMP 97.8
[2023-07-23 18:45] VITALS: BP 117/81; O2SAT 100
--- NOTE | 2023-07-25 16:58 | EKG ---
Test Date: 2023-07-23 Test Time: 10:18:50 Steward/Stewardess [employer] Class: [employer] MEASUREMENT RESULTS: Intervals: Rate: 115 NV: QRSD: 88 QT: 328 QTc: 453 [place]: P: NV: QRS: 84 T: 69 INTERPRETIVE STATEMENTS: Atrial fibrillation Abnormal ECG Compared to ECG 01/16/2023 12:31:03 Sinus rhythm no longer present ST (T wave) deviation no longer present Electronically Signed On 07-25-23 16:53:09 [employer] by Vernon Trevino
== END ==
LOC: ER 09:50
DX: I48.0 Paroxysmal atrial fibrillation (principal); D64.9 Anemia, unspecified; K59.00 Constipation, unspecified; K64.9 Unspecified hemorrhoids; R06.02 Shortness of breath; R53.1 Weakness
CPT/HCPCS: 96361; 93005; 85025; 36415; 86900; 86850; 86901; 86920; 84484; 80053; 71045; 96374; 99284; P9016; J7050; J7030

== ENCOUNTER → 2023-08-02 | Emergency (ER) | payer OTHER ==
[~2023-08-02] MED LIST changes: +ACETAMINOPHEN 325 MG TABLET ONE; +DIPHENHYDRAMINE 50 MG/ML VIAL ONE; -NA CHLORIDE 0.9% 250 ML ONE; +NA CHLORIDE 0.9% 500 ML ONE; -dilTIAZem HCL 25 MG/5 ML VIAL IV ONE
--- NOTE | 2023-08-02 10:58 | RAD REPORT ---
[facility] CLINICAL HISTORY: COUGH COMPARISON: Chest Single View dated 07/23/2023; Chest Single View dated 01/16/2023; Chest Single View dated 09/25/2022 TECHNIQUE: Portable AP view of the chest. FINDINGS: The lungs are clear. No pneumothorax or effusion. The cardiomediastinal contours are unre markable. IMPRESSION: No acute cardiopulmonary process.
[2023-08-02 11:52] LABS: Protime INR 1.08
[2023-08-02 11:58] LABS: Absolute Lymphocytes (CBC) 1.2 K/uL (0.7-4.9); Hematocrit 19.6 % (39.6-49.0); Lymphocytes % 18.1 % (15.3-44.8); MCV 67.5 fL (80-100); MPV 7.8 fL (7.6-11.3); Platelets 247 thou/uL (152-406)
[2023-08-02 12:10] LABS: AST/SGOT 9 U/L (15-37); Albumin 3.4 g/dL (3.4-5.0); Alkaline Phosphatase 168 U/L (45-117); BUN Blood Urea Nitrogen 15 mg/dL (7-18); Bicarbonate 23 mEq/L (21-32); Bilirubin Total 0.3 mg/dL (0.2-1.0); Glomerular Filtration Rate 83 ml/min (=/>90); Glucose Level 99 mg/dL (74-106); Magnesium 2.4 mg/dL (1.6-2.4); NT PRO-BNP 198 pg/mL (<125); Potassium 4.1 mEq/L (3.5-5.1); Protein, Total 6.8 g/dL (6.4-8.2); Sodium Level 136 mEq/L (136-145); Troponin High Sensitivity 4.8 pg/mL (<58.9)
[2023-08-02 12:11] LABS: ALT/SGPT < 10 U/L (16-61); Bilirubin Direct < 0.1 mg/dL (0-0.2); Bilirubin Indirect, Calculated ND mg/dL (0.2-0.8)
[2023-08-02 12:38] LABS: Anisocytosis 2+; Blood Morphology Comment NOTED (NOT SEEN); Platelet Estimate ADEQ; White Blood Cell Scan OK (OK)
[2023-08-02 12:39] LABS: Hypochromasia 2+
--- NOTE | 2023-08-02 15:04 | ER ---
Nurse's Notes [facility] Name: Amanuel Page Age: 63 yrs Sex: Male : 1960 Arrival Date: 08/02/2023 Time: 10:03 Bed 15 Private MD: Diagnosis: GI Bleed/ Gastrointestinal hemorrhage, unspecified-lower;Anemia, unspecified Presentation: 08/02 10:29 Chief complaint: Patient states: he feels like he is in need of a blood transfusion. ap3 patient states he typically gets blood transfusions due to chronically low hemoglobin. Patient reports his most recent hemoglobin level was a 7.0 on 07/28/2023. Coronavirus screen: At this time, the client does not indicate any symptoms associated with coronavirus-19. Ebola Screen: No symptoms or risks identified at this time. Initial Sepsis Screen: Does the patient meet any 2 criteria? No. Patient's initial sepsis screen is negative. Does the patient have a suspected source of infection? No. Patient's initial sepsis screen is negative. Risk Assessment: Do you want to hurt yourself or someone else? Patient reports no desire to harm self or others. Onset of symptoms is unknown. 10:29 Method Of Arrival: Ambulatory ap3 10:29 Acuity: ANA 3 ap3 Triage Assessment: 10:32 General: Appears in no apparent distress. Behavior is calm, cooperative, appropriate ap3 for age. General: Reports fatigue for. Pain: Denies pain. Neuro: Level of Consciousness is awake, alert, obeys commands, Oriented to person, place, time, situation. Cardiovascular: Patient's skin is warm and dry. Respiratory: Airway is patent Respiratory effort is even, unlabored, Respiratory pattern is regular, symmetrical. Historical: - Allergies: 10:30 Iodine; ap3 - PMHx: 10:30 Anemia; Atrial fibrillation; Atrial fibrillation; Bladder mass; Prostate Cancer; mets ap3 to bone; - Immunization history:: Adult Immunizations up to date. - Social history:: Smoking status: Patient reports the use of cigarette tobacco products, smokes one pack cigarettes per day. Screenin:32 Abuse screen: Denies threats or abuse. Nutritional screening: No deficits noted. ap3 Tuberculosis screening: No symptoms or risk factors identified. 12:44 [facility] ED Fall Risk Assessment (Adult) History of falling in the last 3 months, kc6 including since admission No falls in past 3 months (0 pts) Confusion or Disorientation No (0 pts) Intoxicated or Sedated No (0 pts) Impaired Gait No (0 pts) Mobility Assist Device Used No (0 pt) Altered Elimination No (0 pt) Score/Fall Risk Level 0 - 2 = Low Risk. Assessment: 12:45 General: Appears in no apparent distress. comfortable, well groomed, well developed, kc6 Behavior is calm, cooperative, appropriate for age. Pain: Denies pain. Neuro: Level of Consciousness is awake, alert, obeys commands, Oriented to person, place, time, situation, Appropriate for age. Cardiovascular: Capillary refill < 3 seconds. Respiratory: Airway is patent Trachea midline Respiratory effort is even, unlabored, Respiratory pattern is regular, symmetrical. GI: Reports rectal bleeding, bloody stool, hemorrhoids, Patient currently denies abdominal pain, nausea, vomiting. : No signs and/or symptoms were reported regarding the genitourinary system. EENT: No signs and/or symptoms were reported regarding the EENT system. Derm: No signs and/or symptoms reported regarding the dermatologic system. Skin is intact, is healthy with good turgor, Skin is dry, Skin is pale, Skin temperature is warm. Musculoskeletal: No signs and/or symptoms reported regarding the musculoskeletal system. Circulation, motion, and sensation intact. Capillary refill < 3 seconds, Range of motion: intact in all extremities. 13:45 Reassessment: Patient appears in no apparent distress at this time. No changes from kc6 previously documented assessment. Patient and/or family updated on plan of care and expected duration. Pain level reassessed. Patient is alert, oriented x 3, equal unlabored respirations, skin warm/dry/pink. 15:07 Reassessment: Patient appears in no apparent distress at this time. No changes from kc6 previously documented assessment. Patient and/or family updated on plan of care and expected duration. Pain level reassessed. Patient is alert, oriented x 3, equal unlabored respirations, skin warm/dry/pink. d/c pending completion of blood transfusion. 16:21 Reassessment: Patient appears in no apparent distress at this time. No changes from kc6 previously documented assessment. Patient and/or family updated on plan of care and expected duration. Pain level reassessed. Patient is alert, oriented x 3, equal unlabored respirations, skin warm/dry/pink. 17:37 Reassessment: Patient appears in no apparent distress at this time. No changes from kc6 previously documented assessment. Patient and/or family updated on plan of care and expected duration. Pain level reassessed. Patient is alert, oriented x 3, equal unlabored respirations, skin warm/dry/pink. Vital Signs: 10:29 BP 123 / 74; Pulse 79; Resp 17; Temp 98.3; Pulse Ox 100% ; Weight 85.73 kg; Height 6 ap3 ft. 1 in. ; 12:46 BP 128 / 66; Pulse 63; Resp 16 S; Pulse Ox 100% on R/A; kc6 14:14 BP 120 / 66; Pulse 72; Resp 18 S; Pulse Ox 100% on R/A; kc6 15:07 BP 102 / 68; Pulse 84; Resp 15 S; Pulse Ox 100% on R/A; kc6 16:21 BP 120 / 68; Pulse 79; Resp 19 S; Pulse Ox 100% on R/A; kc6 17:37 BP 116 / 70; Pulse 66; Resp 16 S; Pulse Ox 100% on R/A; kc6 10:29 Body Mass Index 24.94 (85.73 kg, 185.42 cm) ap3 ED Course: 10:06 Patient arrived in ED. im 10:11 Shiva Ball MD is Attending Physician. francheska 10:30 Triage completed. ap3 10:32 Arm band placed on left wrist. ap3 10:54 XRAY Chest (1 view) In Process Unspecified. EDMS 11:37 Initial lab(s) drawn, by pa, sent to lab. Inserted saline lock: 20 gauge in right ap3 antecubital area, using aseptic technique. Blood collected. 12:17 Stacey Roe, RN is Primary Nurse. kc6 12:35 EKG done, by ED staff, reviewed by Shiva Ball MD. em1 12:44 Patient maintains SpO2 saturation greater than 95% on room air. kc6 12:45 Patient has correct armband on for positive identification. Bed in low position. Call [facility] light in reach. Side rails up X 1. Client placed on continuous cardiac and pulse oximetry monitoring. NIBP monitoring applied. 15:03 Herb Ga MD is Referral Physician. francheska 18:31 No provider procedures requiring assistance completed. IV discontinued, intact, kc6 bleeding controlled, No redness/swelling at site. Pressure dressing applied. Administered Medications: 12:44 Drug: NS 0.9% IV 1000 ml IV at 125 ml/hr continuous Route: IV; Rate: 125 ml/hr; Site: kc6 right antecubital; Medication: 18:31 VIS not applicable for this client. kc6 Outcome: 15:03 Discharge ordered by MD. pritchard 18:31 Discharged to home ambulatory, kcArley 18:31 Condition: improved 18:31 Discharge instructions given to patient, Instructed on discharge instructions, follow up and referral plans. Demonstrated understanding of instructions, follow-up care, 18:31 Patient left the ED. kc6 Signatures: Dispatcher [employer] EDShiva Vargas MD MD cha Martinez, Eric em1 Ivy Melgar RN RN ap3 Stacey Roe RN RN kc6 Shruthi Pedesren
--- NOTE | 2023-08-02 15:04 | EDPHYS ---
Physician Documentation [facility] Name: Amanuel Page Age: 63 yrs Sex: Male : 1960 Arrival Date: 08/02/2023 Time: 10:03 Bed 15 Private MD: ED Physician Shiva Ball HPI: 08/02 13:02 This 63 yrs old Male presents to ER via Ambulatory with complaints of Transfusion. [place] 13:02 The patient presents to the emergency department with rectal bleeding, a small amount, [place] bright red blood with bowel movement, on toilet paper. Onset: The symptoms/episode began/occurred 4 week(s) ago. Abdominal pain: none is appreciated. Modifying factors: The symptoms are alleviated by nothing, the symptoms are aggravated by nothing. Associated signs and symptoms: The patient has no apparent associated signs or symptoms. Severity of symptoms: At their worst the symptoms were very mild in the emergency department the symptoms are unchanged. The patient has not experienced similar symptoms in the past. Historical: - Allergies: 10:30 Iodine; ap3 - PMHx: 10:30 Anemia; Atrial fibrillation; Atrial fibrillation; Bladder mass; Prostate Cancer; mets ap3 to bone; - Immunization history:: Adult Immunizations up to date. - Social history:: Smoking status: Patient reports the use of cigarette tobacco products, smokes one pack cigarettes per day. ROS: 13:03 Constitutional: Negative for fever, chills, and weight loss, Eyes: Negative for injury, [place] pain, redness, and discharge, ENT: Negative for injury, pain, and discharge, Neck: Negative for injury, pain, and swelling, Cardiovascular: Negative for chest pain, palpitations, and edema, Respiratory: Negative for shortness of breath, cough, wheezing, and pleuritic chest pain, Back: Negative for injury and pain, : Negative for injury, bleeding, discharge, and swelling, MS/Extremity: Negative for injury and deformity, Skin: Negative for injury, rash, and discoloration, Neuro: Negative for headache, weakness, numbness, tingling, and seizure, Psych: Negative for depression, anxiety, suicide ideation, homicidal ideation, and hallucinations, Allergy/Immunology: Negative for hives, rash, and allergies, Endocrine: Negative for neck swelling, polydipsia, polyuria, polyphagia, and marked weight changes, Hematologic/Lymphatic: Negative for swollen nodes, abnormal bleeding, and unusual bruising, 13:03 Abdomen/GI: Positive for rectal bleeding, Exam: 13:03 Constitutional: This is a well developed, well nourished patient who is awake, alert, [place] and in no acute distress. Head/Face: Normocephalic, atraumatic. Eyes: Pupils equal round and reactive to light, extra-ocular motions intact. Lids and lashes normal. Conjunctiva and sclera are non-icteric and not injected. Cornea within normal limits. Periorbital areas with no swelling, redness, or edema. ENT: Nares patent. No nasal discharge, no septal abnormalities noted. Tympanic membranes are normal and external auditory canals are clear. Oropharynx with no redness, swelling, or masses, exudates, or evidence of obstruction, uvula midline. Mucous membranes moist. Neck: Trachea midline, no thyromegaly or masses palpated, and no cervical lymphadenopathy. Supple, full range of motion without nuchal rigidity, or vertebral point tenderness. No Meningismus. Chest/axilla: Normal chest wall appearance and motion. Nontender with no deformity. No lesions are appreciated. Cardiovascular: Regular rate and rhythm with a normal S1 and S2. No gallops, murmurs, or rubs. Normal PMI, no JVD. No pulse deficits. Respiratory: Lungs have equal breath sounds bilaterally, clear to auscultation and percussion. No rales, rhonchi or wheezes noted. No increased work of breathing, no retractions or nasal flaring. Abdomen/GI: Soft, non-tender, with normal bowel sounds. No distension or tympany. No guarding or rebound. No evidence of tenderness throughout. Back: No spinal tenderness. No costovertebral tenderness. Full range of motion. Male : Normal genitalia with no discharge or lesions. Skin: Warm, dry with normal turgor. Normal color with no rashes, no lesions, and no evidence of cellulitis. MS/ Extremity: Pulses equal, no cyanosis. Neurovascular intact. Full, normal range of motion. Neuro: Awake and alert, GCS 15, oriented to person, place, time, and situation. Cranial nerves II-XII grossly intact. Motor strength 5/5 in all extremities. Sensory grossly intact. Cerebellar exam normal. Normal gait. Psych: Awake, alert, with orientation to person, place and time. Behavior, mood, and affect are within normal limits. 13:03 ECG was reviewed by the Attending Physician. Vital Signs: 10:29 BP 123 / 74; Pulse 79; Resp 17; Temp 98.3; Pulse Ox 100% ; Weight 85.73 kg; Height 6 ap3 ft. 1 in. ; 12:46 BP 128 / 66; Pulse 63; Resp 16 S; Pulse Ox 100% on R/A; kc6 14:14 BP 120 / 66; Pulse 72; Resp 18 S; Pulse Ox 100% on R/A; kc6 15:07 BP 102 / 68; Pulse 84; Resp 15 S; Pulse Ox 100% on R/A; kc6 16:21 BP 120 / 68; Pulse 79; Resp 19 S; Pulse Ox 100% on R/A; kc6 17:37 BP 116 / 70; Pulse 66; Resp 16 S; Pulse Ox 100% on R/A; kc6 10:29 Body Mass Index 24.94 (85.73 kg, 185.42 cm) ap3 MDM: 10:11 Patient medically screened. [facility] 13:07 Differential diagnosis: hemorrhoids, hemorrhagic shock, varices. Data reviewed: vital [place] signs, nurses notes, lab test result(s), EKG, radiologic studies, plain films. Consideration of Admission/Observation Escalation of care including admission/observation considered. I considered the following discharge prescriptions or medication management in the emergency department Medications were administered in the Emergency Department. See MAR. Independent interpretation of the following test(s) in the Emergency Department EKG: See my EKG interpretation above. Test considered but Not performed: CT: ct abd/pel. Historians other than the Patient: patient well informed. Care significantly affected by the following chronic conditions: Hypertension, anemia, a fib, bladder mass, prostrate. Counseling: I had a detailed discussion with the patient and/or guardian regarding the historical points, exam findings, and any diagnostic results supporting the discharge/admit diagnosis, lab results, radiology results, the need for outpatient follow up, for definitive care, a family practitioner, a ergonomist. 08/02 10:12 Order name: Basic Metabolic Panel; Complete Time: 12:50 [place] 08/02 10:12 Order name: CBC with Diff; Complete Time: 12:50 [place] 08/02 10:12 Order name: LFT's; Complete Time: 12:50 [facility] 08/02 10:12 Order name: Magnesium; Complete Time: 12:50 [facility] 08/02 10:12 Order name: NT PRO-BNP; Complete Time: 12:50 [facility] 08/02 10:12 Order name: PT-INR; Complete Time: 12:50 [facility] 08/02 10:12 Order name: Troponin HS; Complete Time: 12:50 [facility] 08/02 10:12 Order name: Type And Screen [facility] 08/02 10:22 Order name: BB Add On [facility] 08/02 12:07 Order name: Packed RBC Leukored [facility] 08/02 12:39 Order name: CBC Smear Scan; Complete Time: 12:50 [facility] 08/02 10:12 Order name: XRAY Chest (1 view); Complete Time: 12:50 [facility] 08/02 10:12 Order name: EKG; Complete Time: 10:12 [facility] 08/02 10:12 Order name: Cardiac monitoring; Complete Time: 12:29 [facility] 08/02 10:12 Order name: EKG - Nurse/Tech; Complete Time: 12:29 [facility] 08/02 10:12 Order name: IV Saline Lock; Complete Time: 11:37 [facility] 08/02 10:12 Order name: Labs collected and sent; Complete Time: 11:37 [facility] 08/02 10:12 Order name: O2 Per Protocol; Complete Time: 12:16 [facility] 08/02 10:12 Order name: O2 Sat Monitoring; Complete Time: 12:16 [facility] 08/02 10:12 Order name: Transfuse; Complete Time: 13:22 [place] EC:03 Rate is 71 beats/min. Rhythm is regular. QRS [place] is Normal. PA interval is normal. QRS [place] interval is normal. QT interval is normal. No Q waves. T waves are Normal. No ST changes noted. Clinical impression: Normal ECG and No evidence of ischemia. Administered Medications: 12:44 Drug: NS 0.9% IV 1000 ml IV at 125 ml/hr continuous Route: IV; Rate: 125 ml/hr; Site: [facility] right antecubital; Disposition Summary: 08/02/23 15:03 Discharge Ordered Notes: Location: Home [place] Problem: new [place] Symptoms: have improved [place] Condition: Stable [place] Diagnosis - GI Bleed/ Gastrointestinal hemorrhage, unspecified - lower [place] - Anemia, unspecified [place] Followup: [place] - With: Private Physician - When: 2 - 3 days - Reason: Recheck today's complaints, Continuance of care, Re-evaluation by your physician Followup: [place] - With: Herb Ga MD - When: 2 - 3 days - Reason: Recheck today's complaints, Re-evaluation by your physician Discharge Instructions: - Discharge Summary Sheet [place] - Anemia [place] - Blood Transfusion, Adult [place] - Gastrointestinal Bleeding [place] - Rectal Bleeding [place] - Rectal Bleeding, [id number] [place] - Blood Transfusion, Adult, Care After, [id number] [place] - Blood Transfusion, Adult, Care After [place] - Lower Gastrointestinal Bleeding [place] Forms: - Medication Reconciliation Form [place] - Thank You Letter [place] - Antibiotic Education [place] - Prescription Opioid Use [place] - Patient Portal Instructions [place] - Leadership Thank You Letter [place] Signatures: Dispatcher [employer] Shiva Dejesus MD MD cha Prokisch, Amanda, RN RN ap3 Stacey Roe RN RN kc6 Corrections: (The following items were deleted from the chart) 12:06 10:12 PACKED RBC LEUKORED+BB.LAB.BRZ ordered. EDMS EDMS 12: 10:15 ABO/RH typing ordered. EDMS EDMS 12:06 10:15 Antibody Screen ordered. EDMS EDMS
[2023-08-03 04:04] VITALS: BP 116/70; TEMP 98.3; O2SAT 100
--- NOTE | 2023-08-04 13:32 | EKG ---
Test Date: 2023-08-02 Test Time: 12:25:52 Campus Safety Officer: YONIS MEASUREMENT RESULTS: Intervals: Rate: 71 NC: 156 QRSD: 98 QT: 406 QTc: 441 [place]: P: 51 NC: 156 QRS: 67 T: 54 INTERPRETIVE STATEMENTS: Normal sinus rhythm Normal ECG Compared to ECG 07/23/2023 10:18:50 Atrial fibrillation no longer present Electronically Signed On 08-04-23 13:23:57 ACID RECOVERY OPERATOR by Vernon Trevino
== END ==
LOC: ER 10:03
PROC: 30233N1 Transfusion of Nonautologous Red Blood Cells into Peripheral Vein, Percutaneous Approach (ICD-10-PCS; principal; 2023-08-02)
DX: D64.9 Anemia, unspecified (principal); F17.210 Nicotine dependence, cigarettes, uncomplicated; Z85.46 Personal history of malignant neoplasm of prostate; Z85.830 Personal history of malignant neoplasm of bone; Z91.048 Other nonmedicinal substance allergy status
CPT/HCPCS: 85025; 80048; 36415; 86900; 83735; 86850; 85610; 86901; 80076; 86920 ×2; 84484; 83880; 71045; 36430; J1200; P9016 ×2; J7050; J7030; 93005

== ENCOUNTER 2024-10-24 09:51 | Emergency (ER) | payer OTHER ==
[2024-10-24] MEDS ORDERED: ONDANSETRON 4 MG/2 ML VIAL ONE ×3 (10:35→15:55)
[2024-10-24] MEDS ORDERED: KETOROLAC 30 MG/ML INJ ONE (10:35)
[2024-10-24] MEDS ORDERED: dexAMETHasone 10 MG/ML VIAL ONE (10:35)
[2024-10-24] MEDS ORDERED: BISACODYL 10 MG RECTAL SUPP ONE (10:36)
[2024-10-24] MEDS ORDERED: LACTULOSE 20 GM/30 ML UCUP ONE ×2 (10:36→11:27)
[2024-10-24] MEDS ORDERED: NA CHLORIDE 0.9% 1,000 ML ONE ×2 (10:36→12:17)
[2024-10-24 10:47] LABS: Absolute Eosinophils 0.2 K/uL (0-0.5); Absolute Lymphocytes (CBC) 1.2 K/uL (0.7-4.9); Absolute Monocytes 0.9 K/uL (0.1-1.3); Absolute Neutrophil 8.5 K/uL (1.8-8.0); Basophils % 0.4 % (0-1.3); Eosinophils % 1.5 % (0-4.4); Hematocrit 43.3 % (39.6-49.0); Hemoglobin 14.9 g/dL (13.6-17.9); MCH 29.2 pg (27.0-35.0); MCHC 34.4 g/dL (32.0-36.0); MCV 84.9 fL (80-100); MPV 9.3 fL (7.6-11.3); Monocytes % 8.7 % (3.3-12.3); Neutrophils % 78.4 % (41.7-73.7); Platelets 237 thou/uL (152-406); Red Cell Distribution Width 14.8 % (12.1-15.2)
[2024-10-24 11:09] LABS: Albumin 3.5 g/dL (3.4-5.0); Albumin/Globulin Ratio 0.9 (1.1-1.8); Anion Gap 7.3 mEq/L (5.0-15.0); Bilirubin Total 0.4 mg/dL (0.2-1.0); Globulin 3.8 g/dL (2.3-3.5); Potassium 4.3 mEq/L (3.5-5.1); Protein, Total 7.3 g/dL (6.4-8.2)
--- NOTE | 2024-10-24 11:37 | RAD REPORT ---
EXAMINATION: CT Abdomen Pelvis Wo Contrast CLINICAL INDICATION: Male, 64 years old. ABD PAIN TECHNIQUE: CT abdomen and pelvis was performed, without IV contrast, as per department protocol. Axia l, sagittal and coronal reconstructions were obtained. One or more of the following dose reduction techniques were used: Automated exposure control, adjustment of the mA and kV according to the patien t size, and iterative reconstruction. Unless otherwise specified, incidental findings do not require dedicated imaging follow-up. COMPARISON: 12/07/2022 FINDINGS: The lack of intravenous contrast limits the sensitivity of this exam for evaluation of solid visceral organs, vascular structures, and retroperitoneum. LOWER CHEST: The visualized lung bases are clear. Mild centrilobular emphysematous changes in the inc luded lung bases. LIVER: Normal in size and contour. No focal lesion. BILIARY SYSTEM: No suspicious abnormalities. SPLEEN: Normal size. No focal lesion. PANCREAS: No mass, ductal dilation, or pierce-pancreatic fluid. ADRENALS: Stable ovoid left adrenal 2.2 cm nodule, indeterminate KIDNEYS AND URETERS: Normal size and contour. No hydronephrosis. URINARY BLADDER: Mild diffuse wall prominence, could relate to underdistention or ongoing cystitis.. GASTROINTESTINAL TRACT: No evidence of bowel obstruction, significant free fluid, free air or abscess . APPENDIX: Normal appendix. LYMPH NODES: No lymphadenopathy. MUSCULOSKELETAL: Progressive sclerotic metastatic lesions throughout the included spine, pelvic bones , ribs, and proximal femurs. No findings to suggest impending pathologic fracture ADDITIONAL FINDINGS: Mild prostatomegaly.. IMPRESSION: Progressive extensive osseous metastatic disease. Diffuse wall prominence of the urinary bladder, could relate to underdistention or ongoing cystitis, without focal mass on noncontrast CT. No other acute or concerning abnormalities in the abdomen or pelvis, with evaluation limited by lack of IV contrast.
--- NOTE | 2024-10-24 12:04 | EDPHYS ---
Physician Documentation [facility] Name: Amanuel Page Age: 64 yrs Sex: Male : 1960 Arrival Date: 10/24/2024 Time: 09:51 Bed 3 Private MD: ED Physician Shiva Ball HPI: 10/24 11:24 This 64 yrs old Male presents to ER via Wheelchair with complaints of Low [place] Back Pain. 11:24 The patient presents with pain that is chronic, with no known mechanism of injury. The [place] symptoms are located in the low back. Historical: - Allergies: 10:04 Iodine; ll1 - PMHx: 10:04 Anemia; Atrial fibrillation; Bladder mass; Prostate Cancer; mets to bone; ll1 - Immunization history:: Adult Immunizations up to date. - Infectious Disease History:: Denies. - Social history:: Smoking status: Patient reports the use of cigarette tobacco products, smokes one-half pack cigarettes per day, smokes one pack cigarettes per day. ROS: 11:26 Constitutional: Negative for fever, chills, and weight loss, Eyes: Negative for injury, [place] pain, redness, and discharge, ENT: Negative for injury, pain, and discharge, 11:26 Neck: Negative for injury, pain, and swelling, Cardiovascular: Negative for chest pain, palpitations, and edema, Respiratory: Negative for shortness of breath, cough, wheezing, and pleuritic chest pain, Back: Negative for injury and pain, : Negative for injury, bleeding, discharge, and swelling, MS/Extremity: Negative for injury and deformity, Skin: Negative for injury, rash, and discoloration, Neuro: Negative for headache, weakness, numbness, tingling, and seizure, Psych: Negative for depression, anxiety, suicide ideation, homicidal ideation, and hallucinations, Allergy/Immunology: Negative for hives, rash, and allergies, Endocrine: Negative for neck swelling, polydipsia, polyuria, polyphagia, and marked weight changes, Hematologic/Lymphatic: Negative for swollen nodes, abnormal bleeding, and unusual bruising, 11:26 Abdomen/GI: Positive for abdominal pain, of the right upper quadrant, left upper quadrant, right lower quadrant and left lower quadrant, Exam: 11:30 Constitutional: This is a well developed, well nourished patient who is awake, alert, [place] and in no acute distress. Head/Face: Normocephalic, atraumatic. Eyes: Pupils equal round and reactive to light, extra-ocular motions intact. Lids and lashes normal. Conjunctiva and sclera are non-icteric and not injected. Cornea within normal limits. Periorbital areas with no swelling, redness, or edema. ENT: Nares patent. No nasal discharge, no septal abnormalities noted. Tympanic membranes are normal and external auditory canals are clear. Oropharynx with no redness, swelling, or masses, exudates, or evidence of obstruction, uvula midline. Mucous membranes moist. Neck: Trachea midline, no thyromegaly or masses palpated, and no cervical lymphadenopathy. Supple, full range of motion without nuchal rigidity, or vertebral point tenderness. No Meningismus. Chest/axilla: Normal chest wall appearance and motion. Nontender with no deformity. No lesions are appreciated. Cardiovascular: Regular rate and rhythm with a normal S1 and S2. No gallops, murmurs, or rubs. Normal PMI, no JVD. No pulse deficits. Respiratory: Lungs have equal breath sounds bilaterally, clear to auscultation and percussion. No rales, rhonchi or wheezes noted. No increased work of breathing, no retractions or nasal flaring. Abdomen/GI: Soft, non-tender, with normal bowel sounds. No distension or tympany. No guarding or rebound. No evidence of tenderness throughout. Back: No spinal tenderness. No costovertebral tenderness. Full range of motion. Male : Normal genitalia with no discharge or lesions. Skin: Warm, dry with normal turgor. Normal color with no rashes, no lesions, and no evidence of cellulitis. MS/ Extremity: Pulses equal, no cyanosis. Neurovascular intact. Full, normal range of motion., bilateral aka Neuro: Awake and alert, GCS 15, oriented to person, place, time, and situation. Cranial nerves II-XII grossly intact. Motor strength 5/5 in all extremities. Sensory grossly intact. Cerebellar exam normal. Normal gait. Psych: Awake, alert, with orientation to person, place and time. Behavior, mood, and affect are within normal limits. Vital Signs: 10:04 BP 110 / 77; Pulse 74; Resp 16; Pulse Ox 99% ; Weight 86.18 kg; Height 6 ft. 1 in. ; ll1 Pain 9/10; 11:30 BP 100 / 71; Pulse 60; Resp 17 S; Pulse Ox 100% on R/A; ha1 12:15 BP 101 / 73; Pulse 68; Resp 18; Pulse Ox 96% on R/A; kj2 12:46 BP 116 / 104; Pulse 61; Resp 18; Pulse Ox 100% on R/A; kj2 14:00 BP 103 / 72; Pulse 67; Resp 18; Pulse Ox 98% on R/A; ph 15:00 BP 108 / 78; Pulse 69; Resp 18; Pulse Ox 99% on R/A; ph 16:00 BP 118 / 87; Pulse 64; Resp 18; Temp 98.9; Pulse Ox 97% on R/A; ph 10:04 Body Mass Index 25.07 (86.18 kg, 185.42 cm) ll1 10:04 Pain Scale: Adult ll1 MDM: 10:02 Medical Screening Exam initiated [place] 10:10 Medical Screening Exam initiated [place] 11:30 Differential diagnosis: arthritis, strain, sciatica, contusion, Herniated disc UTI, [place] bowel obstruction, coronary artery disease, Cholelithiasis, diverticulitis, gastritis, gastroesophageal reflux disease. Data reviewed: vital signs, nurses notes, lab test result(s), radiologic studies, CT scan. Consideration of Admission/Observation Escalation of care including admission/observation considered. I considered the following discharge prescriptions or medication management in the emergency department Medications were administered in the Emergency Department. See MAR. Independent interpretation of the following test(s) in the Emergency Department CT Scan: My interpretation is CT AB/PEL. Test considered but Not performed: MRI: NO MRCP. Historians other than the Patient: PT WELL IN FORMED. Care significantly affected by the following chronic conditions: Cancer, AFIB, BLADDER MASS, ANEMIA. 10/24 10:04 Order name: CBC with Diff; Complete Time: 11:57 [facility] 10/24 10:04 Order name: Comprehensive Metabolic Panel; Complete Time: 11:57 [facility] 10/24 10:04 Order name: Urinalysis w/ reflexes [facility] 10/24 10:39 Order name: Abdomen ; Complete Time: 11:57 EDMS 10/24 13:09 Order name: Misc. Order: get ua; Complete Time: 15:07 [facility] Administered Medications: 10:12 Not Given (Duplicate Order): ns 0.9% 500 ml 500 ml IV at 1 bolus once; to be given as a [place] bolus over 30 minutes 11:02 Drug: Decadron - Dexamethasone IVP 10 mg IVP once Route: IVP; Site: left antecubital; ph 16:13 Follow up: Response: No adverse reaction ph 11:02 Drug: Lactulose PO 30 grams 45 ml PO once Volume: 45 ml; Route: PO; ph 16:13 Follow up: Response: No adverse reaction ph 11:02 Drug: NS 0.9% IV 1000 ml IV at 1000 ml once; to be given as a bolus over 60 minutes ph Route: IV; Rate: 1000 ml; Site: left antecubital; 12:10 Follow up: Response: No adverse reaction; IV Status: Completed infusion; IV Intake: ph 1000ml 11:03 Drug: Ketorolac IVP 15 mg IVP once Route: IVP; Site: left antecubital; ph 16:13 Follow up: Response: No adverse reaction ph 11:03 Drug: Ondansetron IVP 4 mg IVP once; over 2 minutes Route: IVP; Site: left antecubital; ph 16:13 Follow up: Response: No adverse reaction ph 11:36 Drug: Lactulose PO 30 grams 45 ml PO once Volume: 45 ml; Route: PO; ph 16:14 Follow up: Response: No adverse reaction ph 12:01 Not Given (Other Intervention Used): dulcolaxsuppository 10 mg FL once ph 12:14 Drug: morphine IVP or IV 4 mg IVP once over 4 mins Route: IVP; Infused Over: 4 mins; kj2 Site: left antecubital; 12:30 Follow up: Response: No adverse reaction; Pain is decreased ph 12:14 Drug: Ondansetron IVP 4 mg IVP once; over 2 minutes Route: IVP; Site: left antecubital; kj2 12:30 Follow up: Response: No adverse reaction ph 12:14 Drug: NS 0.9% IV 1000 ml IV at 1000 ml once; to be given as a bolus over 60 minutes kj2 Route: IV; Rate: 1000 ml; Site: left antecubital; 13:30 Follow up: Response: No adverse reaction; IV Status: Completed infusion; IV Intake: ph 1000ml 16:04 Drug: morphine IVP or IV 4 mg IVP once over 4 mins Route: IVP; Infused Over: 4 mins; ph Site: left antecubital; 16:10 Follow up: Response: No adverse reaction; Pain is decreased ph 16:04 Drug: Ondansetron IVP 4 mg IVP once; over 2 minutes Route: IVP; Site: left antecubital; ph 16:10 Follow up: Response: No adverse reaction ph Disposition Summary: 10/24/24 12:04 Transfer Ordered Notes: Transfer Location: [facility] [place] Reason: Higher level of care [place] Condition: Fair [place] Problem: new [place] Symptoms: have improved [place] Accepting Physician: TO [facility](10/24/24 16:10) ll1 Diagnosis - Abdominal pain, Generalized [place] - Low back pain - EXTENSIVE AND PROGRESSIVE BONY METASTISIS [place] - Malignant neoplasm of prostate - WIDELY METASTATIC [place] Forms: - Medication Reconciliation Form [place] - SBAR form [place] Signatures: Dispatcher [employer] EDMS Shiva Ball MD MD cha Hall, Patricia, RN RN ph Roxann Saldaña RN RN ll1 Denies Crook RN RN kj2 Corrections: (The following items were deleted from the chart) 10:04 10:04 CBC+H.LAB.BRZ ordered. EDMS EDMS 10:04 10:04 COMPREHENSIVE METABOLIC PANEL+C.LAB.BRZ ordered. EDMS EDMS 10:04 10:04 Urinalysis+U.LAB.BRZ ordered. EDMS EDMS 10:04 10:04 Spine Lumbar Wo Con+CT.RAD.BRZ ordered. EDMS EDMS 10:39 10:13 Abdomen Pelvis W Con+CT.RAD.BRZ ordered. EDMS EDMS 16:10 12:04 [facility] [place] ll1
--- NOTE | 2024-10-24 12:04 | ER ---
Nurse's Notes [facility] Name: Amanuel Page Age: 64 yrs Sex: Male : 1960 Arrival Date: 10/24/2024 Time: 09:51 Bed 3 Private MD: Diagnosis: Abdominal pain, Generalized;Low back pain-EXTENSIVE AND PROGRESSIVE BONY METASTISIS;Malignant neoplasm of prostate-WIDELY METASTATIC Presentation: 10/24 10:04 Chief complaint: Patient states: Low back pain and abdominal pain for 2 days. + ll1 constipation. Coronavirus screen: Client denies travel out of the [place] in the last 14 days. At this time, the client does not indicate any symptoms associated with coronavirus-19. Ebola Screen: Patient denies travel to an Ebola-affected area in the 21 days before illness onset. Initial Sepsis Screen: Does the patient meet any 2 criteria? No. Patient's initial sepsis screen is negative. Does the patient have a suspected source of infection? No. Patient's initial sepsis screen is negative. Risk Assessment: Do you want to hurt yourself or someone else? Patient reports no desire to harm self or others. Onset of symptoms was October 23, 2024. 10:04 Method Of Arrival: Wheelchair ll1 10:04 Acuity: ANA 3 ll1 Triage Assessment: 10:10 General: Appears uncomfortable, Behavior is calm, cooperative, appropriate for age. ll1 Pain: Complains of pain in back Quality of pain is described as aching. GI: Reports lower abdominal pain, upper abdominal pain, constipation, cramping. Musculoskeletal: Reports pain in back. Historical: - Allergies: 10:04 Iodine; ll1 - PMHx: 10:04 Anemia; Atrial fibrillation; Bladder mass; Prostate Cancer; mets to bone; ll1 - Immunization history:: Adult Immunizations up to date. - Infectious Disease History:: Denies. - Social history:: Smoking status: Patient reports the use of cigarette tobacco products, smokes one-half pack cigarettes per day, smokes one pack cigarettes per day. Screenin:08 [facility] ED Fall Risk Assessment (Adult) History of falling in the last 3 months, ph including since admission No falls in past 3 months (0 pts) Confusion or Disorientation No (0 pts) Intoxicated or Sedated No (0 pts) Impaired Gait No (0 pts) Mobility Assist Device Used No (0 pt) Altered Elimination No (0 pt) Score/Fall Risk Level 0 - 2 = Low Risk Oriented to surroundings, Maintained a safe environment, Hourly rounding (assess needs \T\ fall precautionary measures) done. Abuse screen: Denies threats or abuse. Denies injuries from another. Nutritional screening: No deficits noted. Tuberculosis screening: No symptoms or risk factors identified. Assessment: 11:07 Pain: Complains of pain in back and abdomen and bilateral hips. Neuro: Level of ph Consciousness is awake, alert, obeys commands, Oriented to person, place, time, situation. Cardiovascular: Capillary refill < 3 seconds in bilateral fingers Patient's skin is warm and dry. Respiratory: Airway is patent Respiratory effort is even, unlabored, Respiratory pattern is regular, symmetrical. GI: Reports lower abdominal pain, constipation, Patient currently denies nausea, vomiting. Derm: Skin is pink, warm \T\ dry. Musculoskeletal: Circulation, motion, and sensation intact. Range of motion: intact in all extremities. 12:01 Reassessment: Patient appears in no apparent distress at this time. Patient and/or ph family updated on plan of care and expected duration. Pain level reassessed. Patient is alert, oriented x 3, equal unlabored respirations, skin warm/dry/pink. Verbal order from Dr Ball for morphine 4 mg and Zofran 4 mg IVP, see MAR. 12:15 Reassessment: Patient appears in no apparent distress at this time. Patient and/or kj2 family updated on plan of care and expected duration. Pain level reassessed. Patient is alert, oriented x 3, equal unlabored respirations, skin warm/dry/pink. 13:30 Reassessment: Patient appears in no apparent distress at this time. Patient and/or ph family updated on plan of care and expected duration. Pain level reassessed. Patient is alert, oriented x 3, equal unlabored respirations, skin warm/dry/pink. 15:07 Reassessment: REPORT CALLED TO TRISTIAN SAENZ AT [facility]. 16:09 Reassessment: Patient appears in no apparent distress at this time. Patient and/or ph family updated on plan of care and expected duration. Pain level reassessed. Patient is alert, oriented x 3, equal unlabored respirations, skin warm/dry/pink. Vital Signs: 10:04 BP 110 / 77; Pulse 74; Resp 16; Pulse Ox 99% ; Weight 86.18 kg; Height 6 ft. 1 in. ; ll1 Pain 9/10; 11:30 BP 100 / 71; Pulse 60; Resp 17 S; Pulse Ox 100% on R/A; ha1 12:15 BP 101 / 73; Pulse 68; Resp 18; Pulse Ox 96% on R/A; kj2 12:46 BP 116 / 104; Pulse 61; Resp 18; Pulse Ox 100% on R/A; kj2 14:00 BP 103 / 72; Pulse 67; Resp 18; Pulse Ox 98% on R/A; ph 15:00 BP 108 / 78; Pulse 69; Resp 18; Pulse Ox 99% on R/A; ph 16:00 BP 118 / 87; Pulse 64; Resp 18; Temp 98.9; Pulse Ox 97% on R/A; ph 10:04 Body Mass Index 25.07 (86.18 kg, 185.42 cm) ll1 10:04 Pain Scale: Adult ll1 ED Course: 09:53 Patient arrived in ED. al6 10:02 Shiva Ball MD is Attending Physician. francheska 10:05 Triage completed. ll1 10:10 Arm band placed on Patient placed in an exam room, on a stretcher. ll1 10:11 Warm blanket given. ll1 10:29 Inserted saline lock: 20 gauge in left forearm, using aseptic technique. Blood kb4 collected. Flushed with 10 mL NS. 11:02 Radha Bernardo, RN is Primary Nurse. ph 11:08 Abdomen In Process Unspecified. EDMS 11:15 Patient has correct armband on for positive identification. Bed in low position. Call ph light in reach. Side rails up X 1. Pulse ox on. NIBP on. 12:27 initiated transfer to [facility]. bd 14:50 pt accepted in transfer to [facility] 18 tower rm [address] Phan admin approval given bd by Riya Chapman. 15:08 No provider procedures requiring assistance completed. Patient transferred, IV remains ph in place. Administered Medications: 10:12 Not Given (Duplicate Order): ns 0.9% 500 ml 500 ml IV at 1 bolus once; to be given as a francheska bolus over 30 minutes 11:02 Drug: Decadron - Dexamethasone IVP 10 mg IVP once Route: IVP; Site: left antecubital; ph 16:13 Follow up: Response: No adverse reaction ph 11:02 Drug: Lactulose PO 30 grams 45 ml PO once Volume: 45 ml; Route: PO; ph 16:13 Follow up: Response: No adverse reaction ph 11:02 Drug: NS 0.9% IV 1000 ml IV at 1000 ml once; to be given as a bolus over 60 minutes ph Route: IV; Rate: 1000 ml; Site: left antecubital; 12:10 Follow up: Response: No adverse reaction; IV Status: Completed infusion; IV Intake: ph 1000ml 11:03 Drug: Ketorolac IVP 15 mg IVP once Route: IVP; Site: left antecubital; ph 16:13 Follow up: Response: No adverse reaction ph 11:03 Drug: Ondansetron IVP 4 mg IVP once; over 2 minutes Route: IVP; Site: left antecubital; ph 16:13 Follow up: Response: No adverse reaction ph 11:36 Drug: Lactulose PO 30 grams 45 ml PO once Volume: 45 ml; Route: PO; ph 16:14 Follow up: Response: No adverse reaction ph 12:01 Not Given (Other Intervention Used): dulcolaxsuppository 10 mg NM once ph 12:14 Drug: morphine IVP or IV 4 mg IVP once over 4 mins Route: IVP; Infused Over: 4 mins; kj2 Site: left antecubital; 12:30 Follow up: Response: No adverse reaction; Pain is decreased ph 12:14 Drug: Ondansetron IVP 4 mg IVP once; over 2 minutes Route: IVP; Site: left antecubital; kj2 12:30 Follow up: Response: No adverse reaction ph 12:14 Drug: NS 0.9% IV 1000 ml IV at 1000 ml once; to be given as a bolus over 60 minutes kj2 Route: IV; Rate: 1000 ml; Site: left antecubital; 13:30 Follow up: Response: No adverse reaction; IV Status: Completed infusion; IV Intake: ph 1000ml 16:04 Drug: morphine IVP or IV 4 mg IVP once over 4 mins Route: IVP; Infused Over: 4 mins; ph Site: left antecubital; 16:10 Follow up: Response: No adverse reaction; Pain is decreased ph 16:04 Drug: Ondansetron IVP 4 mg IVP once; over 2 minutes Route: IVP; Site: left antecubital; ph 16:10 Follow up: Response: No adverse reaction ph Medication: 11:15 VIS not applicable for this client. ph Intake: 12:10 IV: 1000ml; Total: 1000ml. ph 13:30 IV: 1000ml; Total: 2000ml. ph Outcome: 12:04 ER care complete, transfer ordered by . francheska 16:10 Patient left the ED. ll1 16:10 Transferred by ground EMS to [facility], Transfer form ph completed. X-rays sent w/ patient. 16:10 Condition: stable 16:10 Instructed on the need for transfer, Signatures: Dispatcher [employer] EDMS Janeth Lopez Corey, MD MD cha Hall, Patricia RN Roxann Bazzi ph RN RN ll1 Tali Donovan RN RN ha1 Denise Crook RN RN kj2 Bessie Rangel Pattie Miranda kb4
[2024-10-24] MEDS ORDERED: MORPHINE 4 MG/ML SYR ONE ×2 (12:07→15:55)
[2024-10-24 16:02] LABS: Specific Gravity 1.013 (1.005-1.030); Sqamous Epithelial <5 /HPF (None Seen); Urine Bacteria None Seen /HPF (<20); Urine Bilirubin NEGATIVE (Negative); Urine Blood 1+ (Negative); Urine Clarity Clear (Clear); Urine Color Light-Yellow (Yellow); Urine Crystals Unidentified Few /HPF (None Seen); Urine Culture Reflex Order NOT NEEDED; Urine Glucose NEGATIVE (Negative); Urine Ketones NEGATIVE (Negative); Urine Microscopic Reflex YN ORDER UMIC; Urine Mucus 1+ /HPF (None Seen); Urine Nitrite NEGATIVE (Negative); Urine Protein NEGATIVE (Negative); Urine Urobilinogen Normal (Normal); Urine WBC <5 /HPF (<5); Urine WBC Clump Rare /HPF (None Seen); Urine Yeast (Budding) Trace /HPF (None Seen)
[2024-10-24 17:29] VITALS: BP 116/104; O2SAT 100
== END 2024-10-24 16:10 | disposition short-term general hospital (02) ==
LOC: EEVIPCON 09:51 → ER 09:51
DX: M54.50 Low back pain, unspecified (principal); C79.51 Secondary malignant neoplasm of bone; R10.84 Generalized abdominal pain; C61 Malignant neoplasm of prostate; F17.210 Nicotine dependence, cigarettes, uncomplicated
CPT/HCPCS: 96361; 85025; 81001; 36415; 80053; 74176; 96375; 96374; 99285; J1100; J2405 ×3; J7030 ×2